=== PATIENT | male | born 1950 | race Two or more races ===

== ENCOUNTER → 2024-07-29 | Outpatient (CLI) | payer MEDICAID, SELFPAY ==
--- NOTE | 2024-07-29 10:30 | XR_ITS ---
Examination: MRI brain without intravenous contrast. Date and time of exam: July 29, 2024 1049 hours INDICATIONS: Increasing memory loss confusion 3 months, diagnosis Parkinson's disease 2021 Technique: Multiple axial and sagittal images of the brain obtained. Siemens high-resolution 1.5 Maye short bore scanners utilized. Sagittal sections, T1-weighted, TR 500, TE 14, are performed. Axial sections proton-density and T2-weighted have been obtained. Inversion recovery axial images, TR 9, 260, TE 111, TI 2500. Diffusion weighted images, axial sections, TR 4800, TE 128, B value 1000 Axial sections, ADC map, TR 4800, TE 128 Findings: Enlargement of the sella turcica is not present. The optic chiasm and infundibular are not remarkable. Prepontine and interpeduncular cisterns are not enlarged. There is no localized enlargement of the medulla or barbara. Fourth ventricle and cerebellar tonsils appear normal in position. No subacute area of hemorrhage density is seen. Mass in the cerebellopontine angle region is not evident. Globes symmetrical. Orbital musculature including medial lateral rectus muscles do not exhibit abnormality. Diffusion-weighted images demonstrate no focus of restricted diffusion. Increased white matter signal mild Mass effect upon the ventricular system is not identified. Impression: Negative for acute hemorrhage mass effect or midline shift No acute infarct Mild chronic microvascular white matter change Chronic ethmoid sinusitis
== END | disposition home or self-care (01) ==
LOC: SMRI 09:44
PROVIDERS: PCP Nurse Practitioner Family; Referring Provider Nurse Practitioner Family; Visit Provider Nurse Practitioner Family
DX: J32.2 Chronic ethmoidal sinusitis (principal); R90.82 White matter disease, unspecified
CPT/HCPCS: 70551

== ENCOUNTER 2024-08-11 10:49 | Inpatient (IN) | payer MEDICAID, SELFPAY ==
[2024-08-11] VITALS (8 sets, daily range): BP systolic 151–181; BP diastolic 70–94; PULSE 72–839; RESP 17–96; TEMP 36.4–36.9; O2SAT 93–97
--- NOTE | 2024-08-11 10:53 | EKG_ITS ---
[facility] Test Date: 2024-08-11 Pat Name: MARCOS CHINCHILLA Department: Room: - Gender: Male [place]: : 1950 Requested By: Ryan Peguero Order Number: [id number] Reading MD: Ryan Peguero Measurements Intervals [place] Rate: 85 P: 31 [place]: 155 QRS: -25 QRSD: 93 T: 28 QT: 355 QTc: 423 Interpretive Statements SINUS RHYTHM BORDERLINE LEFT AXIS DEVIATION [QRS AXIS < -20] LOW QRS VOLTAGE IN PRECORDIAL LEADS [QRS DEFLECTION < 1.0 mV IN CHEST LEADS] Compared to ECG 04/03/2024 13:34:29 No significant changes /store/S0/[id number]/[id number].pdf
--- NOTE | 2024-08-11 10:54 | EDNOTE_ITS ---
Neuro Symptoms Deficit-RME/HPI General Chief Complaint: Weakness Stated Complaint: STROKE Time Seen by Provider: 08/11/24 10:53 Arrival date/time: 08/11/24 10:49 RME / HPI RME / HPI Narrative: 74 year old male with history of Parkinson's disease, dementia presents to the ED BIBA from home for evaluation of left facial droop and weakness beginning this morning after waking up at 10:00 am. Per medics, family reports patient was unable to get out of bed which is new for him. Stated patient went to bed at 7pm last night and was at his usual state of health. Prehospital B/P 168/93, BS 188. No falls injury or trauma reported. Patient denies any recent illness, fevers, chills, sweats, chest pain, abdominal pain, n/v/d, or urinary symptoms. Related Data Home Medications ?Medication ?Instructions ?Recorded ?Confirmed furosemide 40 mg tablet 40 mg PO QDAY 12/09/21 12/09/21 trazodone 50 mg tablet 50 mg PO QPM 12/09/21 12/09/21 Previous Rx's ?Medication ?Instructions ?Recorded carbidopa 25 mg-levodopa 100 mg 1 tab PO TID #90 tabs 03/08/21 tablet meclizine 25 mg tablet 25 mg PO QDAY PRN dizziness #14 06/25/22 tabs hydrocodone 5 mg-acetaminophen 325 1 tab PO BID PRN pain #10 tabs 01/29/23 mg tablet naproxen 375 mg tablet 375 mg PO BID PRN pain #20 tabs 01/29/23 doxycycline hyclate 100 mg capsule 100 mg PO BID #14 caps 12/29/23 Allergies Allergy/AdvReac Type Severity Reaction Status Date / Time No Known Allergies Allergy Verified 02/25/24 15:59 Review of Systems Review of Systems Narrative Review of Systems: Constitutional: DENIES; Fevers Eyes: DENIES; Loss of vision Head/Ear/Nose: DENIES; Loss of hearing Throat: DENIES; Dysphagia Cardiovascular: DENIES; Chest pain, dyspnea or syncope Respiratory: DENIES; Shortness of breath Gastrointestinal: DENIES; Rectal bleeding or melena. Genitourinary: DENIES; Dysuria (painful or difficult urination) Musculoskeletal: DENIES; Arthralgia (pain in a joint),; Skin: DENIES; Rash Neurological: SEE HPI +generalized weakness, left facial droop Psychiatric: DENIES; recent major life stressor, emotional problem, illicit drug use or abuse Endocrinology: DENIES; Weight change Hematologic/Lymphatic: DENIES; Abnormal bruising Allergic/Immunologic: DENIES; Urticaria (hives) Past Medical History Past Medical History NEUROLOGIC: Positive Neurological Disorders, Transient Ischemic Attacks (TIA), Dementia and Parkinson's Disease Surgical History OTHER SURGICAL HX: RIGHT ARM SUGERY Social History SMOKING STATUS: Never smoker SUBSTANCE USE: does not use ED Exam Narrative Physical exam: Physical Exam: General: The vital signs were reviewed. Patient brought in by EMS for a stroke alert has acute onset of unable to walk and slurred speech was found this way 10 this morning when he woke up. Otherwise patient has a facial droop and appears healthy with a patent airway, no respiratory distress and has no apparent circulatory problems. Head & Scalp: Normocephalic, atraumatic. Face: Appears normal and is without lesions, deformity. Ears: Left external pinna appears normal. Right external pinna appears normal. Eyes: The sclera is anicteric. No obvious photophobia. The Left and Right Orbit/Lid/Conjunctiva appears normal without swelling, discoloration or injection. Nose: The nose is without deformity, discharge or tenderness; Throat: Appears normal. The mucous membranes are pink and moist without exudates, redness or mass seen. The tongue appears normal. Neck: The neck is supple and no apparent mass or adenopathy. Chest: The chest wall is normal in size and symmetry and has no chest wall tenderness or crepitus. The patient displays normal ventilator effort without retractions, accessory muscle use and has adequate air movement bilaterally with no wheezes and no rales. Cardiovascular: Regular rate and rhythm; No murmurs, rubs, or gallops; Gastrointestinal: The abdomen appears normal. No obvious hernias or mass. The abdomen is soft and benign, non-distended, with no pain, no guarding and no rebound tenderness. Bowel sounds are present and normal sounding. No CVA tenderness. Genitourinary: Back/Spine: No complaints of pain normal [place] Extremities/Musculoskeletal/lymphatic: The bilateral upper and lower extremities are warm. There is no evidence of arterial insufficiency. There is no evidence of venous insufficiency/edema. The patient spontaneously moves bilateral upper and lower extremities with no pain and no limitation of movement. There is no apparent, injury or trauma. Skin: The skin is warm, dry and intact. No rashes. No petechia. No purpura. No abnormal bruising. The color is appropriate with no cyanosis. Mental status/Psychiatric: Mental status is appropriate for age. The patient has no apparent delusions, visual hallucinations, no apparent audible hallucinations. The patient has no apparent suicidal thoughts/ideation and no apparent homicidal thoughts/ideation. Neurological: The patient is awake, alert, interactive, appears to follow directions understands questions his speech is quite slurred hard to understand. Cranial nerves are grossly intact his pupils have range of motion but there is somewhat restricted he also has a history of Parkinson's. UNREMARKABLE opens his mouth tongue is midline. He is got good light adjuster strength bilaterally in his hands. He moves them on command. Right leg has motor probably 4/5 and left leg is probably weaker 3/5. Gait and station were not tested due to is too weak to stand at this time. Course Quality Measures Suspected type of Stroke: Non Acute Last known well (date): 08/10/24 Last known well (time): 19:00 Tenecteplase given: Reason(s) TPA not given: Outside the time window not given stroke Orders Category Date Time Status Bedside Blood Glucose NOW Care 08/11/24 10:53 Active Personnel Clerk NOW Care 08/11/24 10:53 Active Continuous Pulse Oximetry NOW Care 08/11/24 10:53 Completed EKG (ED ONLY) *Do not use* NOW Care 08/11/24 10:53 Completed In and Out Catheter NEEDED Care 08/11/24 10:53 Active Insert IV NOW Care 08/11/24 10:53 Active MRI Screening NOW Care 08/11/24 15:56 Active NIH Stroke Scale now Care 08/11/24 10:53 Active NPO NOW Care 08/11/24 10:53 Active Nurse Swallow Screen x1 Care 08/11/24 10:53 Active Consult to Neurology / Tele-Neurology Routine Cons 08/11/24 10:[address] angio stroke protocol Stat Exams 08/11/24 10:[address] stroke protocol Stat Exams 08/11/24 10:53 Completed EKG (ED Only) Stat Exams 08/11/24 10:53 Draft MR head/brain wo con Stat Exams 08/11/24 Ordered XR chest 1V portable Stat Exams 08/11/24 16:09 Completed CBC Stat Lab 08/11/24 11:43 Completed Comprehensive Metabolic Panel Stat Lab 08/11/24 11:43 Completed Drug Screen,Urine Stat Lab 08/11/24 12:28 Completed HCG Titer if Positive Stat Lab 08/11/24 11:43 Completed Magnesium Stat Lab 08/11/24 11:43 Completed Partial Thromboplastin Time Stat Lab 08/11/24 11:43 Completed Prothrombin Time with INR Stat Lab 08/11/24 11:43 Completed Troponin I Stat Lab 08/11/24 11:43 Completed Urinalysis Stat Lab 08/11/24 12:28 Completed Urine Culture Stat Lab 08/11/24 12:28 Received Aspirin Med 08/11/24 15:54 Discontinued 325 mg PO X1 ONE Clopidogrel [Plavix] Med 08/11/24 15:54 Discontinued 300 mg PO X1 ONE Ondansetron Inj [Zofran Inj] Med 08/11/24 10:53 Active 4 mg IV Q4HR PRN Oxygen Delivery NOW RT 08/11/24 10:53 Active Vital Signs Vital signs: Vital Signs Temperature 98.4 F 08/11/24 11:24 Pulse Rate 87 08/11/24 11:24 Respiratory Rate 20 08/11/24 11:24 Blood Pressure 157/85 H 08/11/24 11:24 Pulse Oximetry (%) 97 08/11/24 11:24 Oxygen Delivery Method Room Air 08/11/24 11:24 Pulse ox is 97% on room air which is adequate. Neuro Symptoms / Deficit MDM Narrative MDM Narrative:: Patient is a 71-year-old comes in with acute onset of neurological symptoms at 10 AM when he woke up last seen normal was 7 PM last night. An acute stroke alert was called. Patient presented the ambulance bay with left facial droop left leg weakness and states his left arm also felt weak but was able to move it with 4-5 strength. Patient had a CT of the head with with no acute no bleed no fracture CTA was done which reveals no occlusive process. Patient medical workup included a test which was negative urine drug screen which was negative. Urine was concentrated 1038 comprehensive metabolic panel was essentially negative PT/INR within normal limits. Blood count was 5.4 and hemoglobin 12.9. Patient's blood pressure on initial evaluation were 1 40-1 70 systolic range . Teleneurologist called back and felt the patient was a candidate for aspirin and Plavix which was given at 325 and 300 mg. Also requested MRI. Dr. Mckay was contacted at 1555 hrs. will be consulting spoke with the hospitalist Dr. Resendiz and he will be admitted for the hospitalist team. Patient data External records reviewed:: [facility] previous records (I reviewed ED visit on 04/03/2024) and EMS form Clinical information provided by:: patient and EMS (Provided prehospital course) Social determinants that could affect healthcare access:: none Patient has the following chronic illnesses:: Parkinson's Disease, dementia How is presenting disease/condition affected by chronic disease/condition?: exacerbated by Evaluation data The following diagnostics were reviewed and interpreted by me:: lab results, radiology exam(s) and EKG tracing(s) (Sinus rhythm, rate 85, no STEMI. ) Lab and/or radiology exams considered but not ordered:: None Interpretation Summary: Ordering Physician: Ryan Peguero MD Date of Service: 08/11/24 Procedure(s): CT stroke protocol Accession Number(s): [id number] cc: Ryan Peguero MD; Alex Mobley MD~ Examination: CT brain head without contrast. 2-D sagittal coronal reconstructions Date and time of exam:August 11, 2024 1055 hours INDICATIONS: Stroke alert, onset left-sided facial droop today CTDI: vol (mGy):56.7 DLP: (mGycm):1227 Technique: Multiple CT axial sections of the brain have been obtained, 5 mm slice thickness. Contrast has not been administered. 2-D sagittal, coronal reconstructions have been obtained Low dose protocols were performed. One or more of the following dose reduction techniques were used; automated exposure control, adjustment of the mA and/or KV according to patient size, use of iterative reconstruction technique. Findings: No significant ventricular enlargement. Intra-axial or extra-axial hemorrhage density is not seen. No mass effect or midline shift Basal cisterns are not remarkable. Fourth ventricle is midline. Cranial vault intact. Impression: Negative for acute hemorrhage, mass effect or midline shift Dictated By: Alex Mobley MD Signed By: <Electronically signed by Alex Mobley MD in OV> 08/11/24 1103 ======= Ordering Physician: Ryan Peguero MD Date of Service: 08/11/24 Procedure(s): CT angio stroke protocol Accession Number(s): [id number] cc: Ryan Peguero MD; Alex Mobley MD~ Examination: CTA carotids with intravenous contrast CTA brain, head with intravenous contrast. 2-D sagittal, coronal reconstructions. 3-D reconstructions. Exam date and time: August 11, 2024 1102 hours INDICATIONS: Stroke alert, onset left-sided facial droop beginning this morning CTDI: vol (mGy) 56.9 DLP: (mGycm) 476 Technique: Multiple CTA axial brain, head carotid images post intravenous contrast injection 100 cc, [id number]. 2-D sagittal, coronal reconstructions. 3-D reconstructions, 3-D post processing including vascular maximum intensity projection images. Low dose protocols were performed. One or more of the following dose reduction techniques were used; automated exposure control, adjustment of the mA and/or KV according to patient size, use of iterative reconstruction technique. Findings: No significant common carotid carotid bifurcation or internal carotid artery stenoses Dominant left vertebral artery with no critical stenoses No cerebral large vessel arterial occlusions thrombus dissection or cerebral aneurysm IMPRESSION: No significant neck arterial stenoses No cerebral large vessel arterial occlusions or thrombus Dictated By: Alex Mobley MD Signed By: <Electronically signed by Alex Mobley MD in OV> 08/11/24 1144 Medications / Prescriptions Medications or Prescriptions considered but not ordered:: None Medication administrations:: Medication Administration History Ondansetron HCl (Ondansetron Inj 2 Mg/Ml Inj 2 Ml) 4 mg IV Q4HR PRN PRN Reason: NAUSEA OR VOMITING Stop: 09/10/24 10:52 Discontinued Medications Aspirin (Aspirin 325 Mg Tablet) 325 mg PO X1 ONE Stop: 08/11/24 15:55 Clopidogrel Bisulfate (Clopidogrel Bisulfate 75 Mg Tablet) 300 mg PO X1 ONE Stop: 08/11/24 15:55 See above Consultations Consultation(s) initiated? (list below): Yes Consultation #1 (Physician, Specialty, Details): I spoke with teleneurologist Dr. Martinez as noted above. Time: 11:11 Consultation #2 (Physician, Specialty, Details): I spoke with resident Dr. Guzman working with Dr. Santana. Discussed patients PMHx, HPI, ED course, exam findings, labs, and radiology results. The hospitalist agree to accept the patient for admission. Diagnosis Neuro Differential Diagnosis: subarachnoid hemorrhage, cerebrovascular accident and transient cerebral ischemia Most likely diagnosis given after review of the tests above:: Acute stroke due to ischemia Acute left hemiparesis Slurred speech Parkinsonism Bradykinesia Admission Indicated Admission indicated?: indicated Admission Request Was there a request for admission?: Yes Admission Attestation Admission request attestation: Discussed case with [] from Hospitalist service regarding admission. Discussed patients ED course, exam findings, labs, and radiology results. The Hospitalist [agrees,declines] to accept the patient for admission. Disposition Plan Disposition Plan: Admit Critical Care Time Critical Care Time Critical Care Time: Yes Total Critical Care Time (min.): 45 Attestation: The high probability of sudden, clinically significant deterioration in the patient's condition required the highest level of my preparedness to intervene urgently. The services I provided to this patient were to treat and/or prevent clinically significant deterioration. Services included the following: chart data review, reviewing nursing notes and/or old charts, documentation time, financial consultant collaboration regarding findings and treatment options, medication orders and management, direct patient care, vital sign assessments and ordering, interpreting and reviewing diagnostic studies and lab tests. Aggregate critical care time includes only time during which I was engaged in work directly related to the patient's care, as described above, whether at bedside or elsewhere in the Emergency Department. It did not include time spent performing other reported procedures or the services of residents, students, nurses or physician assistants. Discharge Plan Plan Patient Disposition: Admit Acute Care w/in Hospital Disposition Comment: Hospitalist admit neurology consult Prescriptions/Referrals Prescriptions/Med Rec: No Action carbidopa-levodopa 25-100 mg Tablet 1 tab PO TID Qty: 90 0RF furosemide 40 mg tablet 40 mg PO QDAY trazodone 50 mg tablet 50 mg PO QPM Patient Comments: TAKE 1 TABLET BY MOUTH EVERY DAY AT BEDTIME NEEDED FOR 30 DAYS meclizine 25 mg tablet 25 mg PO QDAY PRN (Reason: dizziness) Qty: 14 0RF doxycycline hyclate 100 mg capsule 100 mg PO BID Qty: 14 0RF naproxen 375 mg tablet 375 mg PO BID PRN (Reason: pain) Qty: 20 0RF hydrocodone-acetaminophen 5-325 mg tablet 1 tab PO BID MDD 2 PRN (Reason: pain) Qty: 10 0RF Referrals: No Primary/Family,Physician [Primary Care Provider] - In 1 week Problem List Clinical Impression: Acute stroke due to ischemia, Acute left hemiparesis, Slurred speech, Parkinsonism, Bradykinesia Patient/Caregiver Discharge Instructions Print Language: Tamazight Stand Alone Forms: Lianet Award Info., Patient Portal Info Letter
--- NOTE | 2024-08-11 11:15 | PD.TNEURO ---
Tele Neuro Consultation Consultation Date 08/11/24 Consultation Narrative [facility] Tele[facility]rology Consult [facility] Patient Name:???Eitan Tomlinson Date of :???1950 Identification Number:??? Date of Service:???08/11/2024 10:46:30 Diagnosis:?I63.30 - Cerebrovascular accident (CVA) due to thrombosis of cerebral artery (HCCC) Impression: ?74M with PMHx Parkinson's disease, TIA, presents for LLE weakness. Patient states he was ok when he went to bed last night at 7pm. This morning when he woke up, he could not get out of bed at 10am. ?He could not walk. That leg has been weak in the past, but not this weak. His left arm also feels weak. Normally he can walk unassisted. On exam no drift LUE and can initially lift as high as the RUE, however he has difficulty completing FTN, but is not ataxic, suspect difficult with movmement initiation 2/2 Parkinson's. LLE drift and L facial droop are present. DDX includes acute ischemic stroke vs recrudescence of prior deficits and exacerbated by underlying Parkinson's, suspect he is undermedicated with respect to his carbidopa levodopa. Our recommendations are outlined below. Recommendations: ? Stroke/Telemetry Floor ? Neuro Checks ? Bedside Swallow Eval ? DVT Prophylaxis ? IV Fluids, Normal Saline ? Head of Bed 30 Degrees ? Euglycemia and Avoid Hyperthermia (PRN Acetaminophen) ? Antihypertensives PRN if Blood pressure is greater than 220/120 or there is a concern for End organ damage/contraindications for permissive HTN. If blood pressure is greater than 220/120 give labetalol PO or IV or Vasotec IV with a goal of 15% reduction in BP during the first 24 hours. ?If passes bedside swallow; ASA 325 and Plavix 300mg PO; if does not pass, then ASA 300mg NM; ?MR brain w/o; stroke workup if new stroke on MR brain ?Inpatient Neuro if available to titrate Parkinson's meds; close outpatient Neuro follow-up Sign Out: ? Discussed with Emergency Department Provider Advanced Imaging:Advanced imaging has been ordered. Results pending. Metrics: Last Known Well: 08/10/2024 19:00:00 Dispatch Time: 08/11/2024 10:46:30 Arrival Time: 08/11/2024 10:49:00 Initial Response Time: 08/11/2024 10:50:10Symptoms: LLE weakness. Initial patient interaction: 08/11/2024 10:53:04 NIHSS Assessment Completed: 08/11/2024 11:04:00Patient is not a candidate for Thrombolytic. Thrombolytic Medical Decision: 08/11/2024 11:04:30Patient was not deemed candidate for Thrombolytic because of following reasons: LKW outside 4.[address] head showed no acute hemorrhage or acute core infarct. Primary Provider Notified of Diagnostic Impression and Management Plan on: 08/11/2024 11:09:39 History of Present Illness:Patient is a 74 year old Male. Patient was brought by EMS for symptoms of LLE weakness. 74M with PMHx Parkinson's disease, TIA, presents for LLE weakness. Patient states he was ok when he went to bed last night at 7pm. This morning when he woke up, he could not get out of bed at 10am. He could not walk. That leg has been weak in the past, but not this weak. His left arm also feels weak. ? Medications: No Anticoagulant use? No Antiplatelet use Reviewed EMR for current medications Allergies:? Reviewed Social History: Smoking: No Family History: There is no family history of premature cerebrovascular disease pertinent to this consultation ROS : 14 Points Review of Systems was performed and was negative except mentioned in HPI. Past Surgical History: There Is No Surgical History Contributory To Today?s Visit ? Examination: BP(168/93),?Pulse(100),?Blood Glucose(188) 1A: Level of Consciousness - Alert; keenly responsive?+ 0 1B: Ask Month and Age - 1 Question Right?+ 1 1C: Blink Eyes & Squeeze Hands - Performs Both Tasks?+ 0 2: Test Horizontal Extraocular Movements - Normal?+ 0 3: Test Visual Duncan - No Visual Loss?+ 0 4: Test Facial Palsy (Use Grimace if Obtunded) - Partial paralysis (lower face)?+ 2 5A: Test Left Arm Motor Drift - No Drift for 10 Seconds?+ 0 5B: Test Right Arm Motor Drift - No Drift for 10 Seconds?+ 0 6A: Test Left Leg Motor Drift - Drift, but doesn't hit bed?+ 1 6B: Test Right Leg Motor Drift - No Drift for 5 Seconds?+ 0 7: Test Limb Ataxia (FNF/Heel-Warren) - No Ataxia?+ 0 8: Test Sensation - Mild-Moderate Loss: Can Sense Being Touched?+ 1 9: Test Language/Aphasia - Normal; No aphasia?+ 0 10: Test Dysarthria - Normal?+ 0 11: Test Extinction/Inattention - No abnormality?+ 0 NIHSS Score:?5 NIHSS Free Text :?decreased sensation L face; L facial droop Pre-Morbid Modified [place] Scale:2 Points = Slight disability; unable to carry out all previous activities, but able to look after own affairs without assistance Spoke with :?ED physician This consult was conducted in real time using interactive audio and video technology. Patient was informed of the technology being used for this visit and agreed to proceed. Patient located in hospital and provider located at home/office setting. Patient is being evaluated for possible acute neurologic impairment and high probability of imminent or life-threatening deterioration. I spent total of 35 minutes providing care to this patient, including time for face to face visit via telemedicine, review of medical records, imaging studies and discussion of findings with providers, the patient and/or family. Dr Benita Martinez [facility] For Inpatient follow-up with [facility] physician please call [facility] at . As we are not an outpatient service for any post hospital discharge needs please contact the hospital for assistance. If you have any questions for the [facility] physicians or need to reconsult for clinical or diagnostic changes please contact us via [facility] at .
[2024-08-11 11:50] LABS: Basophils % (Auto) 0 % (0-2.5); Eosinophils % (Auto) 1 % (0-10); Hematocrit 36.8 % (41.0-53.0); Hemoglobin 12.9 g/dL (13.5-16.0); Immature Granulocytes % (Auto) 0 % (0-0); Immature Granulocytes Auto 0.02 Thou/mm3 (0.00-0.00); Lymphocytes # (Auto) 1.5 Thou/mm3 (1.0-4.8); Lymphocytes % (Auto) 27 % (10-50); Mean Corpuscular HGB Conc 35.1 g/dl (31.0-37.0); Mean Corpuscular Hemoglobin 30.8 pg (25.0-35.0); Mean Corpuscular Volume 88 fL (80-100); Monocytes # (Auto) 0.6 Thou/mm3 (0.0-0.8); Monocytes % (Auto) 10 % (0-12); Neutrophils # (Auto) 3.3 Thou/mm3 (1.8-7.7); Neutrophils % (Auto) 61 % (37-80); Nucleated Red Blood Cell % 0 /100 WBC (0); Platelet Count 214 Thou/mm3 (140-440); RDW Standard Deviation 41.1 fL (35.1-43.9); Red Blood Count 4.19 Miln/mm3 (4.50-5.90); White Blood Count 5.4 Thou/mm3 (3.8-10.6)
[2024-08-11 12:03] LABS: Partial Thromboplastin Time 20.6 Seconds (22.0-36.0); Prothrombin Time 10.8 Seconds (9.0-12.2)
[2024-08-11 12:10] LABS: HCG Titer if Positive Negative
[2024-08-11 12:11] LABS: Alanine Aminotransferase 25 U/L (10-49); Albumin, Serum 4.1 gm/dL (3.4-4.8); Albumin/Globulin Ratio 1.4 (1.2-2.2); Alkaline Phosphatase 77 U/L (46-116); Anion Gap 10 (7-16); Aspartate Amino Transferase 20 U/L (0-34); BUN/Creatinine Ratio 14 Ratio (12-20); Blood Urea Nitrogen 13 mg/dL (9-23); Calcium 9.5 mg/dL (8.3-10.6); Calcium (Corrected) 9.5 mg/dL (8.5-10.1); Carbon Dioxide 23.9 mMol/L (20.0-31.0); Chloride 105 mMol/L (98-107); Creatinine (Component) 0.9 mg/dL (0.6-1.3); Glucose 99 mg/dL (74-106); Magnesium 2.2 mg/dL (1.6-2.6); Osmolality,Calculated 277 (275-295); Sodium 139 mMol/L (136-145); Total Protein 7.1 gm/dL (5.7-8.2); Troponin I < 0.002 ng/mL (0.0-0.045); eGFR > 60 See Note
[2024-08-11 12:49] LABS: Collection Type, Urine Catheter; Squamous Epithelial Cell,Urine 0 /hpf (0-5)
[2024-08-11 12:53] LABS: Bacteria,Urine 1+; Bilirubin,Urine Negative (Negative); Blood,Urine Negative (Negative); Clarity,Urine Clear (Clear/Hazy); Color,Urine Yellow (Lt Yel-Yel); Glucose, Urine Negative (Negative); Ketones,Urine Negative (Negative); Leukocyte Esterase,Urine Negative (Negative); Nitrite,Urine Negative (Negative); PH,Urine 6.5 (5.0-7.0); Protein,Urine Negative (Neg - Trace); RBC,Urine 4 /hpf (0-3); Specific Gravity,Urine 1.038 (1.001-1.035); WBC,Urine 1 /hpf (0-5)
[2024-08-11 12:54] LABS: Amphetamine/Methamp Scrn,U Negative (Negative); Barbiturate Screen,Urine Negative (Negative)
[2024-08-11 12:55] LABS: Benzodiazepines Screen,Urine Negative (Negative); Benzoylecgonine Screen, Ur Negative (Negative); Opiate Screen,Urine Negative (Negative); THC Screen,Urine Negative (Negative)
[2024-08-11 14:38] LABS: Fentanyl Screen,Urine Negative (Negative)
--- NOTE | 2024-08-11 16:09 | XR_ITS ---
Examination: AP chest single view TECHNIQUE: AP portable upright chest single view Exam date and time: August 11, 2024 1628 hours Comparison February 25, 2024 INDICATIONS: Stroke alert today, onset left-sided facial droop FINDINGS: Minor subsegmental atelectasis left base No aspiration pneumonia Normal heart size Reduced inspiratory effort IMPRESSION: No aspiration pneumonia
--- NOTE | 2024-08-11 16:38 | PC.CC ---
Patient is a 74 year-old BIBA from home for stroke. AMARAWEusebia made [id number]-[id number] contact with patient. ASW introduced self, role, and reason for visit. Patient appeared alert and oriented to self, location, and situation. At bedside was patient's spouse, Marita Pritchett who patient provided consent to remain in the room during assessment. Patient confirmed information on demographic and lives at home with his his spouse. Prior to patient being admitted patient used a walker to ambulate. The patient is complete assist and patient's helps with all ADLs. The patient has parkinson and is not able to complete ADLs. Patient receives primary care with Caren Ruiz and uses [facility] for prescription medications. Patient's Next of Kin is spouse Anne. Upon discharge the patient would like to return home; however is open to a SNF if it is needed for rehab services. administrative services manager to follow-up for any discharge needs.
--- NOTE | 2024-08-11 16:41 | PC.CC ---
Patient is a 74 year-old BIBA from home for stroke. Eusebia CALDWELL made [id number] contact with patient. ASW introduced self, role, and reason for visit. Patient appeared alert and oriented to self, location, and situation. At bedside was patient's spouse, Marita Pritchett who patient provided consent to remain in the room during assessment. Patient confirmed information on demographic and lives at home with his his spouse. Prior to patient being admitted patient used a walker to ambulate. The patient is complete assist and patient's helps with all ADLs. The patient has parkinson and is not able to complete ADLs. Patient receives primary care with Caren Ruiz and uses [facility] for prescription medications. Patient's Next of Kin is spouse Marita Beasleytrey . Upon discharge the patient would like to return home; however is open to a SNF if it is needed for rehab services. oil well services field supervisor to follow-up for any discharge needs.
--- NOTE | 2024-08-11 17:00 | ECHO_ITS ---
Transthoracic Echo Report Ht (in): 66 Wt (lb): 206 Exam Location: Portable Status: Emergency Toddler Guide: Rika Wooten Indications: Procedure Performed: BP: 132 / 73 HR: 63 Rhythm: Sinus Technical Quality: Technically difficult study MEASUREMENTS (Male / Female) Normal Values 2D ECHO LV Diastolic Diameter PLAX 4.3 cm 4.2 - 5.9 / 3.9 - 5.3 cm LV Systolic Diameter PLAX 2.9 cm IVS Diastolic Thickness 0.9 cm 0.6 - 1.0 / 0.6 - 0.9 cm LVPW Diastolic Thickness 1.0 cm 0.6 - 1.0 / 0.6 - 0.9 cm LV Relative Wall Thickness 0.4 LVOT Diameter 2.0 cm LA Volume Index 17.0 cm?/m? 16 - 28 cm?/m? Ascending Aorta Diameter 3.7 cm M-MODE Aortic Root Diameter MM 3.3 cm LA Systolic Diameter MM 3.8 cm LA Ao Ratio MM 1.2 AV Cusp Separation MM 1.8 cm DOPPLER AV Peak Velocity 122.0 cm/s AV Peak Gradient 6.0 mmHg AV Mean Gradient 2.0 mmHg AV Velocity Time Integral 23.9 cm LVOT Peak Velocity 118.0 cm/s LVOT Peak Gradient 5.6 mmHg LVOT Velocity Time Integral 24.7 cm LVOT Cardiac Index 2305.3 cm?/min?m? AV Area Cont Eq vti 3.2 cm? AV Area Cont Eq pk 3.0 cm? MV Peak Velocity 99.0 cm/s MV Peak Gradient 3.9 mmHg MV Mean Velocity 60.8 cm/s MV Mean Gradient 2.0 mmHg MV Area PHT 3.5 cm? Mitral E Point Velocity 66.9 cm/s Mitral A Point Velocity 88.8 cm/s Mitral E to A Ratio 0.8 LV E' Lateral Velocity 8.4 cm/s Mitral E to LV E' Lateral Ratio 8.0 LV E' Septal Velocity 6.5 cm/s Mitral E to LV E' Septal Ratio 10.2 FINDINGS Left Ventricle Normal left ventricular size, wall thickness, systolic function with no obvious regional wall motion abnormalities. The ejection fraction is visually estimated at 60-65%. Right Ventricle The right ventricle is normal in size and systolic function. Left Atrium The left atrium is normal by two-dimensional, color flow and Doppler imaging with no structural abnormalities, no thrombus formation present. Right Atrium The right atrium is normal by two-dimensional imaging, color flow and Doppler imaging with no struct ural abnormalities, no thrombus formation present. Atrial Septum The interatrial septum appears normal with no evidence of a shunt. Aorta The aorta is normal by two-dimensional, color flow and Doppler interrogation. Mitral Valve The mitral valve is normal by two-dimensional, color flow and Doppler interrogation. There is trace mitral valve regurgitation. Aortic Valve The aortic valve is trileaflet and normal by two-dimensional, color flow and Doppler interrogation. There is no significant aortic valve regurgitation. Tricuspid Valve The tricuspid valve is normal by two-dimensional, color flow and Doppler interrogation. There is no significant tricuspid valve regurgitation. Pulmonic Valve The pulmonic valve is not well visualized. There is no significant pulmonic valve regurgitation. Vessels The pulmonary artery appears normal. The inferior vena cava pulmonary and hepatic veins appear annabella l. Pericardium The pericardium is normal by two-dimensional imaging. There is no significant pericardial effusion. CONCLUSIONS Indication: Stroke Negative bubble study. TTE is suboptimal to rule out PFO or ASD. Consider TRAVIS if high clinical suspi cion Normal LV size and function. Stage I diastolic dysfunction. Estimated EF 60-65% Normal RV size and function. Trace MR. Raghav Barron (Electronically Signed) Final Date: 12 August 2024 18:49
--- NOTE | 2024-08-11 17:33 | ESHP_ITS ---
Documentation for date of: 08/11/24 [facility] History of Present Illness Chief complaint: weakness History of present illness: 74 y/o M with PMHx of Parkinsons disease, presented to the ED after developing left sided weakness. Per the , patient was feeling tired and weak on 08/10/2024 and was unable to walk, and went to sleep. When he woke up patient was having more weakness on the left side, as well as some slurred speech. also states patient had some hesitancy with urination, but denies burning sensation. Tele neurology was consulted found with NIHSS:5, no tPA was given as patient was out of 4.5 hour window. Denies fever, chills, shortness of breath, chest pain, abdominal pain. ED course: Vitals on arrival showed BP 157/85, HR 87, O2 sat 97% on room air. Labs unremarkable, troponins negative, UA shows +1 bacteria, Utox negative, EKG showed sinus rhythm. CXR showed no aspiration pneumonia. Head CT showed Negative for acute hemorrhage, mass effect or midline shift, Head/Neck CTA showed No significant neck arterial stenoses, No cerebral large vessel arterial occlusions or thrombus. PMHx: Parkinsons SxHx: hand surgery Social Hx:denies alcohol use, denies tobbaco use, denies illicit substances FHx: unknown Review of Systems Review of Systems ROS Unobtainable: unobtainable due to medical condition Exam Vital Signs Temp Pulse Resp BP Pulse Ox O2 Del Method 98.5 F 82 19 170/78 H 96 Room Air 08/11/24 15:50 08/11/24 15:50 08/11/24 15:50 08/11/24 15:50 08/11/24 15:50 08/11/24 15:50 Narrative Exam Physical Exam GENERAL: NAD. AAOx3, slurred and slow speech HEENT: Moist mucosa. Eyes open, symmetrical, & clear CARDIO: No chest pain on palpation. Heart RRR, no obvious murmurs PULM: No noted coughing/dyspnea. Lungs CTA B/L, no R/W/R GI: Abdomen soft, nondistended, no pain on palpation. BSx4 URO/ROUND CUTTER OPERATOR:: No further abnormalities noted. SKIN/MSK/EXT: No wounds/rashes/edema/amputations, no pain on palpation. Pedal pulses present B/L NEURO: AAOx3, left sided weakness in left lower and upper extremity. Results: Labs 08/12/24 04:10 08/12/24 04:10 Labs: Short CBC 08/11/24 Range/Units 11:43 WBC 5.4 (3.8-10.6) Thou/mm3 Hgb 12.9 L (13.5-16.0) g/dL Hct 36.8 L (41.0-53.0) % Plt Count 214 (140-440) Thou/mm3 BMP 08/11/24 11:43 Sodium 139 Potassium 4.0 Chloride 105 Carbon Dioxide 23.9 BUN 13 Creatinine 0.9 Glucose 99 Calcium 9.5 Cardiac Enzymes 08/11/24 Range/Units 11:43 Troponin I < 0.002 (0.0-0.045) ng/mL Liver Function 08/11/24 Range/Units 11:43 Total Bilirubin 1.0 (0.3-1.2) mg/dL AST 20 (0-34) U/L ALT 25 (10-49) U/L Alkaline Phosphatase 77 (46-116) U/L Albumin 4.1 (3.4-4.8) gm/dL Urine 08/11/24 Range/Units 12:28 Urine Color Yellow (Lt Yel-Yel) Urine Clarity Clear (Clear/Hazy) Urine pH 6.5 (5.0-7.0) Ur Specific [place] 1.038 H (1.001-1.035) Urine Protein Negative (Neg - Trace) Urine Glucose (UA) Negative (Negative) Quality Measures Quality Measures stroke Suspected type of Stroke: Non Acute Last known well (date): 08/10/24 Last known well (time): 19:00 Tenecteplase given: Reason(s) Tenecteplase not given: Outside the time window not given Rehab services: PT evaluation ordered VTE Prophylaxis: pharmaceutical Antithrombotic by day 2:: not indicated (describe) Statin ordered: >75 y/o moderate or high intensity dose Anticoagulation ordered for A-fib or flutter (current or hx): not indicated Advance care planning discussed with:: patient and spouse Medications Home Medications and Allergies Home Medications ?Medication ?Instructions ?Recorded ?Confirmed ?Type carbidopa 25 mg-levodopa 100 mg 2 tab PO 4XD 08/11/24 08/11/24 History tablet istradefylline 40 mg tablet 40 mg PO QDAY 08/11/24 08/11/24 History (Maged) Allergies Allergy/AdvReac Type Severity Reaction Status Date / Time No Known Allergies Allergy Verified 02/25/24 15:59 Visit Medications Acetaminophen (Acetaminophen 325 Mg Tablet) 650 mg PO Q6H PRN PRN Reason: Fever >100.5 Stop: 09/10/24 16:59 Acetaminophen (Acetaminophen 325 Mg Tablet) 650 mg PO Q6H PRN PRN Reason: PAIN SCALE 1-3 (mild Stop: 09/10/24 16:59 Aspirin (Aspirin Ec 81 Mg Tabec) 81 mg PO QDAY [facility] Stop: 09/11/24 08:59 Atorvastatin Calcium (Atorvastatin Calcium 20 Mg Tablet) 80 mg PO HS [facility] Stop: 09/10/24 20:59 Carbidopa/Levodopa (Carbidopa/Levodopa 25/100 Mg Tablet) 1 tab PO TID [facility] Stop: 09/10/24 17:29 Clopidogrel Bisulfate (Clopidogrel Bisulfate 75 Mg Tablet) 75 mg PO QDAY [facility] Stop: 09/11/24 08:59 Enoxaparin Sodium (Enoxaparin Sod Inj 40 Mg/0.4 Ml Syringe) 40 mg SC QDAY [facility] Stop: 08/25/24 17:14 Labetalol HCl (Labetalol Inj 5 Mg/Ml Vial 20 Ml) 10 mg IVP Q6H PRN PRN Reason: SBP>220 Stop: 09/10/24 17:29 Ondansetron HCl (Ondansetron Inj 2 Mg/Ml Inj 2 Ml) 4 mg IV Q6H PRN; Protocol PRN Reason: NAUSEA OR VOMITING Stop: 09/10/24 16:59 Patient Own Medication (Patient's Own Med 1 Ea Ea) 300 ea PO Q48HR@2100 [facility] Stop: 09/10/24 20:59 Discontinued Medications Aspirin (Aspirin 325 Mg Tablet) 325 mg PO X1 ONE Stop: 08/11/24 15:55 Clopidogrel Bisulfate (Clopidogrel Bisulfate 75 Mg Tablet) 300 mg PO X1 ONE Stop: 08/11/24 15:55 Ondansetron HCl (Ondansetron Inj 2 Mg/Ml Inj 2 Ml) 4 mg IV Q4HR PRN PRN Reason: NAUSEA OR VOMITING Stop: 09/10/24 10:52 Assessment & Plan Plan 74 y/o M with PMHx of Parkinsons presented due to generalized weakness progressing to left sided weakness on upper and lower extremity as well as some slurred speech. NIHSS of 5 no tPA was given as patient was out of 4.5 hours window. Admitted for Stroke work up. #CVA rule out Patient started developing generalized weakness on 08/10/2024 but the next day developed slurred speech and left upper and lower extremity weakness Tele neuro consulted found with NIHSS of 5, no tPA was given as patient is out of window Head CT showed Negative for acute hemorrhage, mass effect or midline shift Head/Neck CTA showed No significant neck arterial stenoses, No cerebral large vessel arterial occlusions or thrombus - pending MRI - Echo bubble study pending - HOB>30 - Neurology consulted, appreciate recommendations - aspiration precautions - Aspirin 81mg - Plavix 75mg - speech evaluation pending - atorvastatin 80mg - PT eval pending - lipid panel, TSH, A1c pending #Hx of Parkinson disease - resumed Carbidopa levodopa as taken at home #?Latent Tb patient on medication prescription shows patient is taking rifampin and isoniazid Patient denies any weight loss, chills, hemoptysis -resumed isoniazid and rifampin as prescribed Case discussed with my senior Dr. Guzman PGY-[address] Max Beckford MD PGY-1 Disposition: Tele Fluids: None Feeding: NPO, until pass swallow screen Thrombo prophylaxis: Lovenox Gastric Ulcer prophylaxis: none CODE STATUS: Full code Senior resident attestation: Patient evaluated and examined at the bedside, plan of care discussed with rest of the team including my attending physician, except as noted. 74-year-old male, past medical history of parkinsonism, latent TB who presented to ER with generalized weakness, progressing left-sided weakness, patient was out of window for tPA, head CTA showed no LVO, no acute hemorrhage, patient was admitted for stroke workup, pending MRI echo bubble study and in-house neurology recommendations. Patient started on aspirin and Plavix and high intensity statin. Speech language eval and physical therapy eval pending. #Acute CVA #Parkinsonism?continue carbidopa/levodopa on home dose #Latent TB?on rifampin and isoniazid, continued home medications.? Megan PGY2 Attending Provider Attestation/Addendum I have examined the patient, reviewed labs and imaging findings, discussed the case with the resident(s), and reviewed entered orders. I agree with the plan of care as outlined in this note, with these additional summaries/recommendations: Patient presented with left lower extremity weakness, left arm weakness, and left facial droop. Stroke alert was called in the emergency department. Teleneuro was consulted and not a tPA candidate given timeframe. NIHSS score of 5 on admission. Patient was given aspirin loading dose 325 mg x 1 and Plavix loading dose 300 mg x 1. Start aspirin 81 mg p.o. daily and Plavix 75 mg p.o. daily. Pending MRI brain. Head CT was negative for acute hemorrhage and head CTA showed no LVO. Permissive hypertension, lipid panel, A1c, echocardiogram with bubble, PT consult, and swallow evaluation. Patient also has history of Parkinson's disease and possible symptoms are related to this. Resume home Parkinson's medications. Consult in-house neurology for titration of medications. Also appears patent has latent tuberculosis and resume home medications. Admit to telemetry. Repeat hematology and chemistry panel in AM. Dr. Santana
--- NOTE | 2024-08-11 17:40 | XR_ITS ---
Examination: Urinary bladder sonography complete Technique: Transabdominal sonographic images urinary bladder Exam date and time: 03/11/2024 1959 hrs. Indications: Urinary retention today Findings: No bladder mass or bladder calculi Bladder prevoid volume 95 cc postvoid volume 93 cc Prostate normal size no prostate nodules Impression: Negative examination
[2024-08-11 19:12] LABS: Glucose Estimated Average 111 mg/dL (80-131); Hemoglobin A1C 5.5 % Hgb (4.8-6.0)
[2024-08-11] MEDS: CLOPIDOGREL BISULFATE 75 MG TABLET 300 MG PO (19:34)
[2024-08-11] MEDS: Aspirin 325 MG TABLET PO (19:34)
[2024-08-11] MEDS: CARBIDOPA/LEVODOPA 25/100 MG TABLET 1 TAB PO (19:35)
[2024-08-11] MEDS: ENOXAPARIN SOD INJ 40 MG/0.4 ML SYRINGE SC (19:36)
--- NOTE | 2024-08-11 21:19 | PC.NURSE ---
Report called to Rand CHAVEZ. Pt taken to rm [id number] by myself pt on macaroni maker.
--- NOTE | 2024-08-11 23:57 | PC.NURSE ---
notified Dr. Mckay, resident, of patient failing swallow eval and unable to receive his lipitor. Patient has a speech eval tommorow.
[2024-08-12] VITALS: BP 168/84; PULSE 100; RESP 18; TEMP 36.1; O2SAT 97
--- NOTE | 2024-08-12 | XR_ITS ---
Examinations: MRI Brain without intravenous contrast. MRA brain without intravenous contrast. MRA carotids without intravenous contrast 3-D vascular reconstructions Date and time of exam: August 12, 2024 1130 hours Comparison March 07, 2021 INDICATIONS: Stroke alert August 11, 2024, onset focal neurologic deficit, left-sided body weakness slurred speech Technique: Multiple axial and sagittal images of the brain have been obtained MRA brain carotid images without contrast obtained, including 3-D postprocessing, vascular maximum intensity projection images Findings: S[place] is not enlarged. The optic chiasm and infundibular stalk are not remarkable. Prepontine and interpeduncular cisterns are not enlarged. No localized enlargement of the medulla or barbara. Fourth ventricle and cerebellar tonsils normal in position. Subacute hemorrhage is not seen. Fourth ventricle is midline. Mass in the cerebellopontine angle region is not evident. 7th and 8th nerve complexes exhibits symmetry. Globes are symmetrical with no retro-orbital mass. Increased white matter signal mild Diffusion-weighted images demonstrate no focus of restricted diffusion Mass-effect upon the ventricular system is not identified. MRA carotid images no significant carotid stenoses. MRA brain images no cerebral large vessel occlusions Impression: Negative for acute hemorrhage mass effect or midline shift No acute infarct Mild chronic microvascular white matter change No cerebral large vessel arterial occlusions
[2024-08-12 04:00] VITALS: BP 132/73; PULSE 63; RESP 20; TEMP 36.2; O2SAT 97
[2024-08-12 06:04] LABS: Basophils % (Auto) 0 % (0-2.5); Eosinophils % (Auto) 1 % (0-10); Hemoglobin 12.5 g/dL (13.5-16.0); Immature Granulocytes % (Auto) 0 % (0-0); Immature Granulocytes Auto 0.02 Thou/mm3 (0.00-0.00); Lymphocytes # (Auto) 1.3 Thou/mm3 (1.0-4.8); Lymphocytes % (Auto) 22 % (10-50); Mean Corpuscular HGB Conc 34.7 g/dl (31.0-37.0); Mean Corpuscular Hemoglobin 30.9 pg (25.0-35.0); Mean Corpuscular Volume 89 fL (80-100); Monocytes # (Auto) 0.7 Thou/mm3 (0.0-0.8); Monocytes % (Auto) 11 % (0-12); Neutrophils # (Auto) 3.9 Thou/mm3 (1.8-7.7); Neutrophils % (Auto) 65 % (37-80); Nucleated Red Blood Cell % 0 /100 WBC (0); Platelet Count 223 Thou/mm3 (140-440); RDW Standard Deviation 41.4 fL (35.1-43.9); Red Blood Count 4.05 Miln/mm3 (4.50-5.90); White Blood Count 5.9 Thou/mm3 (3.8-10.6)
[2024-08-12 06:29] LABS: Alanine Aminotransferase 12 U/L (10-49); Albumin, Serum 4.3 gm/dL (3.4-4.8); Albumin/Globulin Ratio 1.6 (1.2-2.2); Alkaline Phosphatase 76 U/L (46-116); Anion Gap 7 (7-16); Aspartate Amino Transferase 24 U/L (0-34); BUN/Creatinine Ratio 16 Ratio (12-20); Bilirubin,Total 1.5 mg/dL (0.3-1.2); Blood Urea Nitrogen 16 mg/dL (9-23); Calcium 9.4 mg/dL (8.3-10.6); Calcium (Corrected) 9.4 mg/dL (8.5-10.1); Carbon Dioxide 27.2 mMol/L (20.0-31.0); Cardiac Risk Estimate 2.4 RATIO (4.0-6.7); Chloride 104 mMol/L (98-107); Cholesterol 126 mg/dL (132-200); Globulin 2.7 gm/dL (2.3-3.5); Glucose 88 mg/dL (74-106); HDL Cholesterol 53 mg/dL (40-60); LDL Cholesterol,Calculated 60 mg/dL (0-130); Osmolality,Calculated 275 (275-295); Phosphorous 3.5 mg/dL (2.4-5.1); Potassium 3.7 mMol/L (3.4-5.1); Sodium 138 mMol/L (136-145); Thyroid Stimulating Hormone 3.51 uIU/mL (0.55-4.78); Triglycerides 65 mg/dL (30-150); eGFR > 60 See Note
[2024-08-12 08:00] VITALS: BP 149/77; PULSE 62; PULSE 67; RESP 15; TEMP 36.1; O2SAT 93
--- NOTE | 2024-08-12 09:25 | PCS.ST ---
Swallow Evaluation completed. See report for details. Recommend Dysphagia 2/Reg liquids. ST will follow
[2024-08-12] MEDS: ASPIRIN EC 81 MG TABEC PO (09:28)
[2024-08-12] MEDS: CLOPIDOGREL BISULFATE 75 MG TABLET PO (09:28)
[2024-08-12] MEDS: ENOXAPARIN SOD INJ 40 MG/0.4 ML SYRINGE SC (09:29)
--- NOTE | 2024-08-12 11:04 | PC.SS ---
SS met with patient regarding his d/c plan. Pt is alert/oriented. Pt was admitted for Stroke W/U. Pt confirmed demographic and contact information is correct on facesheet. Pt resides with . Pt ambulates independently without assistance. Pt has 4 wheel with seat, rollator walke. Pt requires assistance with ADLs. helps care for pt at home. Patient?s pharmacy of choice is [facility]. Pt named his , Marita Muñoz medical decision maker if she is unable. SS provided verbal d/c options for home or SNF. Patient?s choice is to return home upon d/c. Pt does not have an advance directive, SS offered, and pt declined. Pt states not diabetic and is not on dialysis. D/C plan: Return home Next of Kin: Marita Tomlinson, , phone# [phone] or [phone] PCP: Dr. Caren Ruiz from [facility] Address: Correct on facesheet
--- NOTE | 2024-08-12 11:06 | PC.SS ---
Stroke assessment completed.
--- NOTE | 2024-08-12 11:25 | PC.SS ---
Follow up note: Neuro recommendations pending. ECHO and PT pending. Pt will return home upon dc.
[2024-08-12 12:00] VITALS: BP 114/82; PULSE 60; PULSE 97; RESP 18; TEMP 36.4; O2SAT 99
[2024-08-12] MEDS: CARBIDOPA/LEVODOPA 25/100 MG TABLET 1 TAB PO ×2 (14:32→21:23)
--- NOTE | 2024-08-12 15:09 | PD.RESPRO ---
Documentation for date of: 08/12/24 Subjective Subjective Interval history: 74 yo maleadmitted yesterday for stroke workup, initial NIHSS score 5. No overnight events, this morning patient denies headache, diziness, however states feeling weak. MRI showed no acute infarct. Exam Vital Signs Temp Pulse Resp BP Pulse Ox O2 Del Method O2 Flow Rate 97.5 F 97 18 114/82 99 Nasal Cannula 2 08/12/24 12:00 08/12/24 12:00 08/12/24 12:00 08/12/24 12:00 08/12/24 12:00 08/12/24 12:00 08/12/24 12:00 Narrative Exam GENERAL: Awake, alert and oriented. No acute distress. HEENT: Normocephalic, atraumatic and nontender.? Left lower facial paralysis NECK: Supple without adenopathy. Trachea midline. Nontender, carotid pulse 2+ bilaterally without bruits, no JVD.? CHEST: Heart rate and rythm normal, no murmurs, gallops auscultated. S1 & 2 normal insensity. Nontender on palpation, no deformity and no crepitus. LUNGS: Lung sounds are clear.? No wheezing, rales or ronchi.? No intercostal subcostal retraction. Room air ABDOMEN: Soft,symmetric , nontender, no guarding or rebound tenderness.? Bowel sounds are normoactive in all 4 quadrants. EXTREMITIES: Nontender.? No pitting edema.? No cyanosis.? Patient is able to move all 4 extremities, weakness on upper extremities bilaterally SKIN: No rashes noted. NEURO:? Cranial nerves intact.? There is no focalization.? GCS is 15. Objective Labs 08/13/24 04:15 08/13/24 04:15 Labs: Laboratory Results - last 24 hr 08/11/24 08/12/24 11:43 04:10 WBC 5.9 RBC 4.05 L Hgb 12.5 L Hct 36.0 L MCV 89 MCH 30.9 MCHC 34.7 RDW Std Deviation 41.4 Plt Count 223 Neut % (Auto) 65 Lymph % (Auto) 22 Hood % (Auto) 11 Eos % (Auto) 1 Baso % (Auto) 0 Neut # (Auto) 3.9 Lymph # (Auto) 1.3 Hood # (Auto) 0.7 Eos # (Auto) 0.0 Baso # (Auto) 0.0 Immature Gran # (Auto) 0.02 H Absolute Nucleated RBC 0.00 Immature Gran % 0 Nucleated RBC % 0 Sodium 138 Potassium 3.7 Chloride 104 Carbon Dioxide 27.2 Anion Gap 7 BUN 16 Creatinine 1.0 Estim Creat Clear Calc Not Performed. eGFR > 60 BUN/Creatinine Ratio [address] Glu mg/dL 111 Hemoglobin A1c 5.5 Calculated Osmolality 275 Calcium 9.4 Corrected Calcium 9.4 Phosphorus 3.5 Magnesium 2.0 Total Bilirubin 1.5 H D AST 24 ALT 12 Alkaline Phosphatase 76 Total Protein 7.0 Albumin 4.3 Globulin 2.7 Albumin/Globulin Ratio 1.6 Triglycerides 65 Cholesterol 126 L LDL Cholesterol, Calc 60 HDL Cholesterol 53 Cholesterol/HDL Ratio 2.4 L TSH 3.51 Quality Measures Quality Measures stroke Suspected type of Stroke: Non Acute Last known well (date): 08/10/24 Last known well (time): 19:00 Tenecteplase given: Reason(s) Tenecteplase not given: Outside the time window not given Rehab services: PT evaluation ordered and Speech Language Pathology eval ordered VTE Prophylaxis: pharmaceutical Antithrombotic by day 2:: not indicated (describe) Statin ordered: >75 y/o moderate or high intensity dose Anticoagulation ordered for A-fib or flutter (current or hx): not indicated Advance care planning discussed with:: patient Assessment & Plan Assessment Current Active Medications: Generic Name Dose Route Start Last Admin Trade Name Freq PRN Reason Stop Dose Admin Acetaminophen 650 mg 08/11/24 17:00 Acetaminophen 325 Mg Tablet PO 09/10/24 16:59 Q6H PRN Fever >100.5 Acetaminophen 650 mg 08/11/24 17:00 Acetaminophen 325 Mg Tablet PO 09/10/24 16:59 Q6H PRN PAIN SCALE 1-3 (mild Aspirin 81 mg 08/12/24 09:00 08/12/24 09:28 Aspirin Ec 81 Mg Tabec PO 09/11/24 08:59 81 mg QDAY JUNE Administration Atorvastatin Calcium 80 mg 08/11/24 21:00 08/11/24 22:02 Atorvastatin Calcium 20 Mg Tablet PO 09/10/24 20:59 Not Given HS JUNE Carbidopa/Levodopa 1 tab 08/11/24 17:30 08/12/24 14:32 Carbidopa/Levodopa 25/100 Mg Tablet PO 09/10/24 17:29 1 tab TID JUNE Administration Rifapentin (Priftin) 0 ea 08/17/24 09:00 150mg Tablets PO 09/16/24 08:59 QWEEK JUNE Enoxaparin Sodium 40 mg 08/11/24 17:15 08/12/24 09:29 Enoxaparin Sod Inj 40 Mg/0.4 Ml Syringe SC 08/25/24 17:14 40 mg QDAY JUNE Administration Isoniazid 900 mg 08/18/24 09:00 Isoniazid 300 Mg Tablet PO 09/17/24 08:59 QWEEK JUNE Labetalol HCl 10 mg 08/11/24 17:18 Labetalol Inj 5 Mg/Ml Vial 20 Ml IVP 09/10/24 17:29 Q6H PRN SBP>220 Ondansetron HCl 4 mg 08/11/24 17:00 Ondansetron Inj 2 Mg/Ml Inj 2 Ml IV 09/10/24 16:59 Q6H PRN NAUSEA OR VOMITING Protocol Plan 74 y/o M with PMHx of Parkinsons presented due to generalized weakness progressing to left sided weakness on upper and lower extremity as well as some slurred speech. NIHSS of 5 no tPA was given as patient was out of 4.5 hours window. Admitted for Stroke work up #Acute CVA workup -Developed slurred speech and left upper and lower extremity weakness on 08/11, lower extremity weakness now resolved, only bilateral upper extremity weakness -Tele neuro consulted found with NIHSS of 5, no tPA was given as patient is out of window -Head CT showed Negative for acute hemorrhage, mass effect or midline shift -Head/Neck CTA showed No significant neck arterial stenoses, No cerebral large vessel arterial occlusions or thrombus -MRI no acute infarct -Continue Aspirin 81mg -Continue Plavix 75mg -Continue atorvastatin 80mg -Follow up echocardiogram Patient's care discussed with attending physician, Dr Woody Lopez MD PGY3 Attending Provider Attestation/Addendum I personally have seen and examined the patient at the bedside and agree with resident findings, assessment and plan of care. Continue WATER FABRICATOR OPERATOR team to sit up at the edge of the bed for mealtimes and participate with physical therapy. Reassurance given to the patient regarding the negative MRI brain for acute stroke.
--- NOTE | 2024-08-12 15:21 | PC.SS ---
Addendum entered by Amy Martinez 08/12/24 15:49: SS has sent inquiry to the local SNF using [facility]. PT notes are pending. PASRR assessment is completed. Original Note: SS met with pt and to inform them Carley from PT is recommending SNF. Pt is agreeable for short term SNF. Pt and prefer SNF in [facility].
[2024-08-12 16:00] VITALS: BP 156/85; PULSE 79; PULSE 83; RESP 14; TEMP 36.4; O2SAT 97; BMI 12.0
--- NOTE | 2024-08-12 16:38 | ESPR_ITS ---
<Statement entered by Esequiel Fong MD - 08/12/24 19:04> Patient was seen and examined at bedside, he denied any new symptoms. Reported persistence of his weakness. Head CT was negative for any hemorrhage or mass effect, CTA were negative for any major arterial blockage or stenosis. LDL was 60 and triglycerides of 65. MRI was done and that showed no acute stroke or hemorrhage. Most likely his weakness secondary to parkinsonism for that reason we will wait for the neurologist recommendation to adjust Parkinson's medications dosages. We are still pending the echo at this time and will continue the patient on aspirin and Plavix and also atorvastatin. 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 Patient denied any symptoms of active TB. - Patient's plan and care discussed with my attending, Dr. Max Fong MD Internal Medicine PGY-2 Documentation for date of: 08/12/24 Subjective Subjective Interval history: Patient examined at bedside today. No acute overnight events. Says that he takes his isoniazid and rifampin, has history of latent TB per . Denies any CP, SOB, weakness, fatigue, or NEFF. No other complaints at this time. Exam Vital Signs Temp Pulse Resp BP Pulse Ox O2 Del Method O2 Flow Rate 97.5 F 97 18 114/82 99 Nasal Cannula 2 08/12/24 12:00 08/12/24 12:00 08/12/24 12:00 08/12/24 12:00 08/12/24 12:00 08/12/24 12:00 08/12/24 12:00 Narrative Exam General: AAOx3, NAD, HEENT: Moist mucous membranes, conjunctiva clear, EOMI, PERRLA, Cardiovascular: S1, S2, radial pulses +2 bilat, RRR Pulmonary: CTAB bilat no cough, no wheezing GI: No tenderness to light or deep palpitation, no guarding, rigidity, rebound tenderness or distension Extremities: No presence of trace or pitting edema in lower extremities bilaterally, dorsalis pedis pulses +2 bilaterally Neuro: AAOx3, some reduced ROM in UE and LE, however this may be due to parkinsons, able to protrude tounge, shrug shoulders, UE and LE has no sensory deficits Psych: Good judgement, thought and behavior Objective Labs 08/13/24 04:15 08/13/24 04:15 Labs: Laboratory Results - last 24 hr 08/11/24 08/12/24 11:43 04:10 WBC 5.9 RBC 4.05 L Hgb 12.5 L Hct 36.0 L MCV 89 MCH 30.9 MCHC 34.7 RDW Std Deviation 41.4 Plt Count 223 Neut % (Auto) 65 Lymph % (Auto) 22 [place] % (Auto) 11 Eos % (Auto) 1 Baso % (Auto) 0 Neut # (Auto) 3.9 Lymph # (Auto) 1.3 [place] # (Auto) 0.7 Eos # (Auto) 0.0 Baso # (Auto) 0.0 Immature Gran # (Auto) 0.02 H Absolute Nucleated RBC 0.00 Immature Gran % 0 Nucleated RBC % 0 Sodium 138 Potassium 3.7 Chloride 104 Carbon Dioxide 27.2 Anion Gap 7 BUN 16 Creatinine 1.0 Estim Creat Clear Calc Not Performed. eGFR > 60 BUN/Creatinine Ratio [address] Glu mg/dL 111 Hemoglobin A1c 5.5 Calculated Osmolality 275 Calcium 9.4 Corrected Calcium 9.4 Phosphorus 3.5 Magnesium 2.0 Total Bilirubin 1.5 H D AST 24 ALT 12 Alkaline Phosphatase 76 Total Protein 7.0 Albumin 4.3 Globulin 2.7 Albumin/Globulin Ratio 1.6 Triglycerides 65 Cholesterol 126 L LDL Cholesterol, Calc 60 HDL Cholesterol 53 Cholesterol/HDL Ratio 2.4 L TSH 3.51 Quality Measures Quality Measures stroke Suspected type of Stroke: Non Acute Last known well (date): 08/10/24 Last known well (time): 19:00 Tenecteplase given: Reason(s) Tenecteplase not given: Outside the time window not given Rehab services: PT evaluation ordered and Speech Language Pathology eval ordered VTE Prophylaxis: pharmaceutical Antithrombotic by day 2:: ordered Statin ordered: >75 y/o moderate or high intensity dose Anticoagulation ordered for A-fib or flutter (current or hx): ordered Advance care planning discussed with:: patient Assessment & Plan Assessment Current Active Medications: Generic Name Dose Route Start Last Admin Trade Name Freq PRN Reason Stop Dose Admin Acetaminophen 650 mg 08/11/24 17:00 Acetaminophen 325 Mg Tablet PO 09/10/24 16:59 Q6H PRN Fever >100.5 Acetaminophen 650 mg 08/11/24 17:00 Acetaminophen 325 Mg Tablet PO 09/10/24 16:59 Q6H PRN PAIN SCALE 1-3 (mild Aspirin 81 mg 08/12/24 09:00 08/12/24 09:28 Aspirin Ec 81 Mg Tabec PO 09/11/24 08:59 81 mg QDAY JUNE Administration Atorvastatin Calcium 80 mg 08/11/24 21:00 08/11/24 22:02 Atorvastatin Calcium 20 Mg Tablet PO 09/10/24 20:59 Not Given HS JUNE Carbidopa/Levodopa 1 tab 08/11/24 17:30 08/12/24 14:32 Carbidopa/Levodopa 25/100 Mg Tablet PO 09/10/24 17:29 1 tab TID JUNE Administration Rifapentin (Priftin) 0 ea 08/17/24 09:00 150mg Tablets PO 09/16/24 08:59 QWEEK JUNE Enoxaparin Sodium 40 mg 08/11/24 17:15 08/12/24 09:29 Enoxaparin Sod Inj 40 Mg/0.4 Ml Syringe SC 08/25/24 17:14 40 mg QDAY JUNE Administration Isoniazid 900 mg 08/18/24 09:00 Isoniazid 300 Mg Tablet PO 09/17/24 08:59 QWEEK JUNE Labetalol HCl 10 mg 08/11/24 17:18 Labetalol Inj 5 Mg/Ml Vial 20 Ml IVP 09/10/24 17:29 Q6H PRN SBP>220 Ondansetron HCl 4 mg 08/11/24 17:00 Ondansetron Inj 2 Mg/Ml Inj 2 Ml IV 09/10/24 16:59 Q6H PRN NAUSEA OR VOMITING Protocol Plan Assessment 74 y/o M with PMHx of Parkinsons presented due to generalized weakness progressing to left sided weakness on upper and lower extremity as well as some slurred speech. NIHSS of 5 no tPA was given as patient was out of 4.5 hours window who is admitted for CVA rule out. #CVA rule out #Generalized Weakness Patient started developing generalized weakness on 08/10/2024 but the next day developed slurred speech and left upper and lower extremity weakness Tele neuro consulted found with NIHSS of 5, no tPA was given as patient is out of window Head CT showed Negative for acute hemorrhage, mass effect or midline shift Head/Neck CTA showed No significant neck arterial stenoses, No cerebral large vessel arterial occlusions or thrombus TSH 3.51 Lipid panel shows cholesterol 126, LDL 60 and triglycerides 65 A1c 5.5 PT recommending SNF Speech recommends dysphagia 2 diet MRI shows no acute hemorrhage, mass effect or midline shift or LVO Weakness could of been 2/2 Parkinson's Plan: -Follow-up echo - HOB>30 - Neurology consulted, appreciate recommendations - aspiration precautions - Aspirin 81mg - Plavix 75mg - atorvastatin 80mg #Hx of Parkinson disease Plan: -Continue with home carbidopa levodopa #Latent Tb patient on medication prescription shows patient is taking rifampin and isoniazid Patient denies any weight loss, chills, hemoptysis Pt is on home isonizaid and Prifitn, pt will have to use prifitin as we do not have this medicine in our pharmacy Pt received his dose for isonzaid yesterday, takes every other day Plan: ?Continue with home isoniazid, Prifitn will have to be patient's home medicine #Health Maintenance Disposition: Telemetry DVT prophylaxis: Lovenox GI prophylaxis: None indicated at this time Diet: Dysphagia 2 CODE STATUS: Full Patient seen and care discussed with my senior resident, Dr. Fong, and my attending physician, Dr. Max Walls, PGY-1 Attending Provider Attestation/Addendum I have examined the patient, reviewed labs and imaging findings, discussed the case with the resident(s), and reviewed entered orders. I agree with the plan of care as outlined in this note, with these additional summaries/recommendations: Patient seen at bedside. No acute overnight events. Patient still endorsing left-sided weakness although states is improved from yesterday. MRI brain obtained which was negative for acute infraction but did reveal mild chronic microvascular white matter changes. CVA ruled out. Symptoms possibly related to underlying Parkinson's disease. Discontinue Plavix. Resumed home carbidopa levodopa and appreciate dose recommendations. Patient pending echocardiogram read and physical therapy. Patient seen by speech therapy and recommends dysphagia 2 diet. Continue home isoniazid and Priftin for history of latent tuberculosis. Repeat chemistry and hematology panel in AM. Anticipate discharge in the next 24 to [address] Santana
[2024-08-12 20:00] VITALS: BP 147/75; PULSE 77; PULSE 79; RESP 17; TEMP 36.4; O2SAT 95
[2024-08-12] MEDS: ATORVASTATIN CALCIUM 20 MG TABLET 80 MG PO (21:23)
[2024-08-13] VITALS (8 sets, daily range): BP systolic 125–148; BP diastolic 75–94; PULSE 62–79; RESP 17–26; TEMP 35.9–36.6; O2SAT 94–96
[2024-08-13] MEDS: CARBIDOPA/LEVODOPA 25/100 MG TABLET 1 TAB PO (05:23)
[2024-08-13 05:45] LABS: Basophils % (Auto) 0 % (0-2.5); Eosinophils # (Auto) 0.2 Thou/mm3 (0.0-0.5); Eosinophils % (Auto) 4 % (0-10); Hematocrit 35.3 % (41.0-53.0); Hemoglobin 12.1 g/dL (13.5-16.0); Immature Granulocytes % (Auto) 0 % (0-0); Immature Granulocytes Auto 0.02 Thou/mm3 (0.00-0.00); Lymphocytes # (Auto) 1.1 Thou/mm3 (1.0-4.8); Lymphocytes % (Auto) 22 % (10-50); Mean Corpuscular HGB Conc 34.3 g/dl (31.0-37.0); Mean Corpuscular Hemoglobin 30.1 pg (25.0-35.0); Mean Corpuscular Volume 88 fL (80-100); Monocytes # (Auto) 0.6 Thou/mm3 (0.0-0.8); Monocytes % (Auto) 12 % (0-12); Neutrophils # (Auto) 3.2 Thou/mm3 (1.8-7.7); Neutrophils % (Auto) 62 % (37-80); Nucleated Red Blood Cell % 0 /100 WBC (0); Platelet Count 286 Thou/mm3 (140-440); RDW Standard Deviation 41.2 fL (35.1-43.9); Red Blood Count 4.02 Miln/mm3 (4.50-5.90); White Blood Count 5.2 Thou/mm3 (3.8-10.6)
[2024-08-13] MEDS: ACETAMINOPHEN 325 MG TABLET 650 MG PO (06:32)
[2024-08-13 06:38] LABS: Albumin, Serum 4.1 gm/dL (3.4-4.8); Albumin/Globulin Ratio 1.6 (1.2-2.2); Alkaline Phosphatase 73 U/L (46-116); Anion Gap 6 (7-16); Aspartate Amino Transferase 29 U/L (0-34); BUN/Creatinine Ratio 15 Ratio (12-20); Bilirubin,Total 1.1 mg/dL (0.3-1.2); Blood Urea Nitrogen 16 mg/dL (9-23); Calcium 9.2 mg/dL (8.3-10.6); Calcium (Corrected) 9.2 mg/dL (8.5-10.1); Carbon Dioxide 27.9 mMol/L (20.0-31.0); Chloride 104 mMol/L (98-107); Creatinine (Component) 1.1 mg/dL (0.6-1.3); Globulin 2.6 gm/dL (2.3-3.5); Glucose 90 mg/dL (74-106); Magnesium 2.1 mg/dL (1.6-2.6); Osmolality,Calculated 276 (275-295); Phosphorous 3.8 mg/dL (2.4-5.1); Potassium 3.8 mMol/L (3.4-5.1); Sodium 138 mMol/L (136-145); Total Protein 6.7 gm/dL (5.7-8.2); eGFR > 60 See Note
[2024-08-13 06:42] LABS: Alanine Aminotransferase 10 U/L (10-49)
[2024-08-13] MEDS: ENOXAPARIN SOD INJ 40 MG/0.4 ML SYRINGE SC (08:29)
[2024-08-13] MEDS: ASPIRIN EC 81 MG TABEC PO (08:29)
[2024-08-13] MEDS: CLOPIDOGREL BISULFATE 75 MG TABLET PO (10:24)
--- NOTE | 2024-08-13 11:44 | PCS.ST ---
Pt seen for swallow tx. DIRECTOR COST recommends advance diet to D3 with thin liquids at this time.
[2024-08-13] MEDS: CARBIDOPA/LEVODOPA 25/100 MG TABLET 2 TAB PO ×3 (11:50→20:09)
--- NOTE | 2024-08-13 14:27 | PC.NURSE ---
Notified that patients left eye is irritated and reddened and has some white discharge on inner lower lid. Also reminded provider that no orders were received for bowel meds for the patient. Provider to place orders
[2024-08-13] MEDS: POLYETHYLENE GLYCOL 17 GM PACKET PO (14:50)
[2024-08-13] MEDS: SENNA TABLET 1 TAB PO (14:51)
--- NOTE | 2024-08-13 14:56 | ESPR_ITS ---
Documentation for date of: 08/13/24 Subjective Subjective Interval history: Pt examined at bedside today. No acute overnight events. Says he is doing good, is wondering why he cant lift up one of his legs that well. Does not have a headache at this time. Is also wondering when he is going to go home. No other complaints at this time. Exam Vital Signs Temp Pulse Resp BP Pulse Ox O2 Del Method O2 Flow Rate 97.8 F 72 17 132/75 H 94 L Room Air 1 08/13/24 12:00 08/13/24 12:00 08/13/24 12:00 08/13/24 12:00 08/13/24 12:00 08/13/24 12:00 08/12/24 16:00 Narrative Exam General: AAOx3, NAD, [place] speaking male HEENT: Moist mucous membranes, conjunctiva clear, EOMI, PERRLA, Cardiovascular: S1, S2, radial pulses +2 bilat, RRR Pulmonary: CTAB bilat no cough, no wheezing GI: No tenderness to light or deep palpitation, no guarding, rigidity, rebound tenderness or distension Extremities: No presence of trace or pitting edema in lower extremities bilaterally, dorsalis pedis pulses +2 bilaterally Neuro: AAOx3, some reduced ROM in UE and LE, however this may be due to parkinsons, able to protrude tounge, shrug shoulders, UE and LE has no sensory deficits Psych: Good judgement, thought and behavior. Cooperative Objective Labs 08/14/24 05:20 08/14/24 05:20 Labs: Laboratory Results - last 24 hr 08/13/24 04:15 WBC 5.2 RBC 4.02 L Hgb 12.1 L Hct 35.3 L MCV 88 MCH 30.1 MCHC 34.3 RDW Std Deviation 41.2 Plt Count 286 D Neut % (Auto) 62 Lymph % (Auto) 22 [place] % (Auto) 12 Eos % (Auto) 4 Baso % (Auto) 0 Neut # (Auto) 3.2 Lymph # (Auto) 1.1 [place] # (Auto) 0.6 Eos # (Auto) 0.2 Baso # (Auto) 0.0 Immature Gran # (Auto) 0.02 H Absolute Nucleated RBC 0.00 Immature Gran % 0 Nucleated RBC % 0 Sodium 138 Potassium 3.8 Chloride 104 Carbon Dioxide 27.9 Anion Gap 6 L BUN 16 Creatinine 1.1 Estim Creat Clear Calc Not Performed. eGFR > 60 BUN/Creatinine Ratio 15 Glucose 90 Calculated Osmolality 276 Calcium 9.2 Corrected Calcium 9.2 Phosphorus 3.8 Magnesium 2.1 Total Bilirubin 1.1 AST 29 ALT 10 Alkaline Phosphatase 73 Total Protein 6.7 Albumin 4.1 Globulin 2.6 Albumin/Globulin Ratio 1.6 Quality Measures Quality Measures stroke Suspected type of Stroke: Non Acute Last known well (date): 08/10/24 Last known well (time): 19:00 Tenecteplase given: Reason(s) Tenecteplase not given: Outside the time window not given Rehab services: PT evaluation ordered VTE Prophylaxis: pharmaceutical Antithrombotic by day 2:: not indicated (describe) Statin ordered: >75 y/o moderate or high intensity dose Anticoagulation ordered for A-fib or flutter (current or hx): not indicated Advance care planning discussed with:: patient Assessment & Plan Assessment Current Active Medications: Generic Name Dose Route Start Last Admin Trade Name Freq PRN Reason Stop Dose Admin Acetaminophen 650 mg 08/11/24 17:00 Acetaminophen 325 Mg Tablet PO 09/10/24 16:59 Q6H PRN Fever >100.5 Acetaminophen 650 mg 08/11/24 17:00 08/13/24 06:32 Acetaminophen 325 Mg Tablet PO 09/10/24 16:59 650 mg Q6H PRN Administration PAIN SCALE 1-3 (mild Aspirin 81 mg 08/12/24 09:00 08/13/24 08:29 Aspirin Ec 81 Mg Tabec PO 09/11/24 08:59 81 mg QDAY JUNE Administration Atorvastatin Calcium 40 mg 08/13/24 21:00 Atorvastatin Calcium 20 Mg Tablet PO 09/12/24 20:59 HS JUNE Carbidopa/Levodopa 2 tab 08/13/24 12:00 08/13/24 11:50 Carbidopa/Levodopa 25/100 Mg Tablet PO 09/12/24 11:59 2 tab QID JUNE Administration Rifapentin (Priftin) 0 ea 08/17/24 09:00 150mg Tablets PO 09/16/24 08:59 QWEEK JUNE Enoxaparin Sodium 40 mg 08/11/24 17:15 08/13/24 08:29 Enoxaparin Sod Inj 40 Mg/0.4 Ml Syringe SC 08/25/24 17:14 40 mg QDAY JUNE Administration Isoniazid 900 mg 08/18/24 09:00 Isoniazid 300 Mg Tablet PO 09/17/24 08:59 QWEEK JUNE Labetalol HCl 10 mg 08/11/24 17:18 Labetalol Inj 5 Mg/Ml Vial 20 Ml IVP 09/10/24 17:29 Q6H PRN SBP>220 Ondansetron HCl 4 mg 08/11/24 17:00 Ondansetron Inj 2 Mg/Ml Inj 2 Ml IV 09/10/24 16:59 Q6H PRN NAUSEA OR VOMITING Protocol Sennosides 1 tab 08/13/24 14:27 08/13/24 14:51 Senna Tablet PO 09/12/24 14:26 1 tab QDAY PRN Administration CONSTIPATION Protocol Plan Assessment 74 y/o M with PMHx of Parkinsons presented due to generalized weakness progressing to left sided weakness on upper and lower extremity as well as some slurred speech. NIHSS of 5 no tPA was given as patient was out of 4.5 hours window who is admitted for CVA rule out. #CVA, ruled out #Generalized Weakness, improving Patient started developing generalized weakness on 08/10/2024 but the next day developed slurred speech and left upper and lower extremity weakness Tele neuro consulted found with NIHSS of 5, no tPA was given as patient is out of window Head CT showed Negative for acute hemorrhage, mass effect or midline shift Head/Neck CTA showed No significant neck arterial stenoses, No cerebral large vessel arterial occlusions or thrombus TSH 3.51 Lipid panel shows cholesterol 126, LDL 60 and triglycerides 65 A1c 5.5 PT recommending SNF Speech recommends dysphagia 2 diet MRI shows no acute hemorrhage, mass effect or midline shift or LVO Weakness could of been 2/2 Parkinson's Echo is negative for both study, grade 1 diastolic dysfunction, EF of 60-65% Will continue with aspirin and Plavix at this time, however MRI was negative for hemorrhage, mass effect, midline shift or LVO Will need to discuss with neurology if we need to continue Plavix upon d/c Weakness likely related to Parkinson's disease SNF upon d/c, needs authorization at this time Plan: - HOB>30 - Neurology consulted, appreciate recommendations - aspiration precautions - Aspirin 81mg - Plavix 75mg - atorvastatin 80mg #Hx of Parkinson disease Patient may need increased dose of carbidopa levodopa as patient is still having weakness Will touch base with neurology to see what they further recommend Return patient's carbidopa back to home dose of Plan: -Continue with home carbidopa levodopa two tabs QID #Latent Tb patient on medication prescription shows patient is taking rifampin and isoniazid Patient denies any weight loss, chills, hemoptysis Pt is on home isonizaid and Prifitn, pt will have to use prifitin as we do not have this medicine in our pharmacy Pt received his dose for isonzaid yesterday, takes every other day r Pt's Isonizid may interact with Plavix, will need to see if pt will be taking plavix upon d/c Plan: ?Continue with home isoniazid, Prifitin will have to be patient's home medicine #Health Maintenance Disposition: Telemetry DVT prophylaxis: Lovenox GI prophylaxis: None indicated at this time Diet: Dysphagia 2 CODE STATUS: Full Patient seen and care discussed with my senior resident, Dr. Guzman, and my attending physician, Dr. Max Walls, PGY-1 Senior resident attestation: Patient evaluated and examined at the bedside, plan of care discussed with rest of the team including my attending physician, except as noted. Patient is a 74-year-old male with a past medical history of Parkinson's disease, on carbidopa levodopa, who has had multiple previous admissions for strokelike symptoms, had brain MRI few weeks ago, now presented again with generalized weakness progressing to left-sided weakness, slurred speech. Stroke alert was called in the ER, brain MRI showed no acute stroke, CTA showed no LVO. Stroke ruled out, in-house neurology consulted, appreciate Dr. Mckay's recommendations. Patient started on aspirin and Plavix initially, but after acute stroke is ruled out, we discontinued Plavix. Increase the patient's carbidopa levodopa dose to match home dosing 2 tablets 4 times daily. Patient is pending placement to SNF, request 3 midnight stay in hospital. #Parkinson's disease #Acute CVA ruled out #Generalized weakness #Latent TB?continue isoniazid and rifapentine as prescribed. Megan PGY2 Attending Provider Attestation/Addendum I have examined the patient, reviewed labs and imaging findings, discussed the case with the resident(s), and reviewed entered orders. I agree with the plan of care as outlined in this note, with these additional summaries/recommendations: Patient seen at bedside. No acute overnight events. Patient continues to endorse generalized weakness which is worse in his lower extremities. MRI was negative for acute fraction but did reveal mild chronic microvascular white matter changes. Acute CVA ruled out. Suspect patient's symptoms are secondary to his underlying Parkinson's disease rather than TIA as symptoms are still present. We will discuss with neurology about discontinuing Plavix and appreciate recommendations on carbidopa/levodopa dosage. Continue dysphagia 2 diet. Continue home isoniazid & Priftin for history of latent tuberculosis. Repeat hematology and chemistry panel in AM. Patient will be discharged to SNF when medically cleared. Dr. Santana
[2024-08-13] MEDS: ATORVASTATIN CALCIUM 20 MG TABLET 40 MG PO (20:08)
[2024-08-13] MEDS: MOXIFLOXACIN OP SOL 0.5% 3 ML BTL 1 DROP LEFT EYE (21:10)
--- NOTE | 2024-08-13 21:22 | ESPR_ITS ---
Documentation for date of: 08/13/24 Subjective Subjective Interval history: Patient was seen in telemetry today with no new symptoms reported. He still feels generally weak all over. Tolerating oral diet well. Exam - Neurology Vital Signs Temp Pulse Resp BP Pulse Ox O2 Del Method O2 Flow Rate 97.9 F 79 20 129/83 96 Room Air 1 08/13/24 20:00 08/13/24 20:00 08/13/24 20:00 08/13/24 20:00 08/13/24 20:00 08/13/24 20:00 08/13/24 15:41 Narrative Exam GENERAL APPEARANCE: Well developed, obese built male in no acute distress. HEENT: Normocephalic, atraumatic, extraocular movements intact. Pupils: Equal reacting to light and accommodation, tympanic membranes are bilaterally intact. There is no bulge or retraction. Throat without erythema or exudate. Moist oral mucosa. NECK: Supple, no JVD or bruits. CARDIOVASULAR: Heart: S1, S2 heard, regular without S3-S4 or murmur no rubs or gallops. LUNGS/CHEST: Clear to auscultation bilaterally. No rails, rhonchi, or wheezing. Normal inspection. ABDOMEN: Soft, nontender, with normal bowel sounds. No pulsatile masses. No rebound, rigidity, or guarding. Normal inspection and palpation. EXTREMITIES: Normal inspection and palpation. No edema, clubbing or cyanosis. SKIN: Warm and dry without rashes. Normal inspection. MUSCULOSKELETAL: No cervical, thoracic, lumbar or midline bony tenderness. Normal inspection. NEURO: Alert, awake and oriented x3. Cranial nerves: II through XII grossly intact. Speech and language: Normal with no dysarthria or dysphasia. Motor system: Tone and bulk: Normal: Strength: 5 out of 5 in all 4 extremities; pronator drift noted. Deep tendon reflexes: 2+ bilaterally symmetrical. Plantar reflex: Downgoing bilaterally. Sensory system: Intact to all modalities of sensation bilaterally. Coordination: Intact to [id number] and mjkt-[id number] test bilaterally. He has signs of Parkinson's disease with rest tremors, cogwheeling, bradykinesia and masked facial expression with postural instability. Gait: Could not be tested as he is very weak and ataxic, no signs of meningeal irritation noted. PSYCHIATRIC: Normal mood and affect. Denies homicidal or suicidal ideation. Objective Labs 08/13/24 04:15 08/13/24 04:15 Labs: Laboratory Results - last 24 hr 08/13/24 04:15 WBC 5.2 RBC 4.02 L Hgb 12.1 L Hct 35.3 L MCV 88 MCH 30.1 MCHC 34.3 RDW Std Deviation 41.2 Plt Count 286 D Neut % (Auto) 62 Lymph % (Auto) 22 [place] % (Auto) 12 Eos % (Auto) 4 Baso % (Auto) 0 Neut # (Auto) 3.2 Lymph # (Auto) 1.1 [place] # (Auto) 0.6 Eos # (Auto) 0.2 Baso # (Auto) 0.0 Immature Gran # (Auto) 0.02 H Absolute Nucleated RBC 0.00 Immature Gran % 0 Nucleated RBC % 0 Sodium 138 Potassium 3.8 Chloride 104 Carbon Dioxide 27.9 Anion Gap 6 L BUN 16 Creatinine 1.1 Estim Creat Clear Calc Not Performed. eGFR > 60 BUN/Creatinine Ratio 15 Glucose 90 Calculated Osmolality 276 Calcium 9.2 Corrected Calcium 9.2 Phosphorus 3.8 Magnesium 2.1 Total Bilirubin 1.1 AST 29 ALT 10 Alkaline Phosphatase 73 Total Protein 6.7 Albumin 4.1 Globulin 2.6 Albumin/Globulin Ratio 1.6 Assessment & Plan Assessment and plan (1) Parkinsons disease: Status: Acute Additional Assessment & Plan Additional Plan: Reassurance given to the patient work-up is negative for acute ischemic stroke, his presenting symptoms are secondary to Parkinson's disease with freezing phenomena. Continue with the Sinemet and Nourianz with close monitoring for visual hallucination. Motivated to participate with physical therapy sessions
[2024-08-14] VITALS (8 sets, daily range): BP systolic 134–169; BP diastolic 81–96; PULSE 65–105; RESP 18–34; TEMP 36–36.4; O2SAT 94–97
[2024-08-14] MEDS: MOXIFLOXACIN OP SOL 0.5% 3 ML BTL 1 DROP LEFT EYE ×3 (05:33→21:05)
[2024-08-14] MEDS: CARBIDOPA/LEVODOPA 25/100 MG TABLET 2 TAB PO ×4 (05:33→21:05)
[2024-08-14 06:18] LABS: Basophils % (Auto) 1 % (0-2.5); Eosinophils # (Auto) 0.3 Thou/mm3 (0.0-0.5); Eosinophils % (Auto) 4 % (0-10); Hematocrit 39.2 % (41.0-53.0); Hemoglobin 13.4 g/dL (13.5-16.0); Immature Granulocytes % (Auto) 0 % (0-0); Immature Granulocytes Auto 0.02 Thou/mm3 (0.00-0.00); Lymphocytes # (Auto) 1.2 Thou/mm3 (1.0-4.8); Lymphocytes % (Auto) 15 % (10-50); Mean Corpuscular HGB Conc 34.2 g/dl (31.0-37.0); Mean Corpuscular Hemoglobin 30.4 pg (25.0-35.0); Mean Corpuscular Volume 89 fL (80-100); Monocytes # (Auto) 0.7 Thou/mm3 (0.0-0.8); Monocytes % (Auto) 8 % (0-12); Neutrophils % (Auto) 73 % (37-80); Nucleated Red Blood Cell % 0 /100 WBC (0); Platelet Count 255 Thou/mm3 (140-440); RDW Standard Deviation 41.6 fL (35.1-43.9); Red Blood Count 4.41 Miln/mm3 (4.50-5.90); White Blood Count 8.2 Thou/mm3 (3.8-10.6)
[2024-08-14 07:04] LABS: Albumin, Serum 4.3 gm/dL (3.4-4.8); Albumin/Globulin Ratio 1.5 (1.2-2.2); Alkaline Phosphatase 80 U/L (46-116); Anion Gap 6 (7-16); Aspartate Amino Transferase 40 U/L (0-34); BUN/Creatinine Ratio 17 Ratio (12-20); Bilirubin,Total 0.7 mg/dL (0.3-1.2); Blood Urea Nitrogen 15 mg/dL (9-23); Calcium 9.6 mg/dL (8.3-10.6); Calcium (Corrected) 9.6 mg/dL (8.5-10.1); Carbon Dioxide 27.6 mMol/L (20.0-31.0); Chloride 104 mMol/L (98-107); Creatinine (Component) 0.9 mg/dL (0.6-1.3); Globulin 2.9 gm/dL (2.3-3.5); Glucose 98 mg/dL (74-106); Osmolality,Calculated 276 (275-295); Phosphorous 3.4 mg/dL (2.4-5.1); Sodium 138 mMol/L (136-145); Total Protein 7.2 gm/dL (5.7-8.2); eGFR > 60 See Note
[2024-08-14 07:07] LABS: Alanine Aminotransferase < 7 U/L (10-49)
[2024-08-14] MEDS: ASPIRIN EC 81 MG TABEC PO (08:15)
[2024-08-14] MEDS: ENOXAPARIN SOD INJ 40 MG/0.4 ML SYRINGE SC (08:15)
[2024-08-14] MEDS: amLODIPine BESYLATE 5 MG TABLET 10 MG PO (08:15)
--- NOTE | 2024-08-14 10:13 | ESDS_ITS ---
Planned Discharge Date 08/14/24 DS: Providers Provider Date of admission: 08/11/24 16:53 Primary care physician: Physician No Primary/Family Admitting Provider: Adrian Santana MD Attending Provider on Admission: Adrian Santana MD Consults: 08/11/24 10:53 Consult to Neurology / Tele-Neurology Routine Comment: Consulting Provider: [facility] 08/11/24 17:06 Referral Physical Therapy Stat Comment: Physician Instructions: Referral Speech Therapy Stat Comment: 08/11/24 17:18 Consult to Neurology / Tele-Neurology Stat Comment: Consulting Provider: Serge Mckay 08/14/24 10:08 Referral Eufemia Stat Comment: Attending Provider on DC: Adrian Santana MD Discharging Provider: Gilbert Beckford MD Anticipated date of discharge: 08/14/24 DS: Diagnosis Problem List Completed Was Problem List Reviewed/Reconciled?: Yes Hospital Course Hospital Course Hospital course: 74 y/o M with PMHx of Parkinsons disease, presented to the ED after developing generalized weakness progressing to left sided weakness on upper and lower extremity as well as some slurred speech. NIHSS of 5 no tPA was given as patient was out of 4.5 hours window. Admitted for Stroke work up. During hospital stay patient underwent stroke protocol including, Head CT, Head/Neck CTA and MRI all which were negative for acute stroke. Echocardiogram was also done as part of work up for stroke and showed normal EF with no signs of PFO. Neurology, Dr. Mckay was also consulted and recommended to continue patient on aspirin. Patient has history of Parkinsons Disease for which his home medications were resumed. Patient also has history of Latent TB and his medications of isonizid and rifampin were resumed as prescribed. Patient had cultures done which showed urinary tract infection for which antibiotic therapy was provided. At this time patient is medically stable for discharge. Please continue antibiotics for 7 more days for UTI. Please follow-up with neurology Dr Mckay within 1 to 2 weeks of discharge from hospital. Please follow-up with your primary care physician within 1 week of discharge from the hospital. In case of worsening symptoms please return to the emergency room. Problem List: #CVA, ruled out #Generalized Weakness, improving #Hx of Parkinson disease #Latent Tb Case discussed with my attending Dr. Max Beckford MD PGY-1 Status at Discharge Functional status at discharge: independent ambulation Overall status at discharge: patient is progressing back to baseline Time Spent with Patient Time attestation: Total time spent providing and/or coordinating discharge services: Time spent: Greater than 30 minutes Exam Vital Signs Temp Pulse Resp BP Pulse Ox O2 Del Method O2 Flow Rate 96.9 F 77 22 H 142/83 H 95 Room Air 1 08/14/24 04:00 08/14/24 08:15 08/14/24 04:00 08/14/24 08:15 08/14/24 04:00 08/14/24 04:00 08/13/24 15:41 Narrative Exam Physical Exam GENERAL: NAD, AAOx3 HEENT: Moist mucosa. Eyes open, symmetrical, & clear CARDIO: Heart RRR, no obvious murmurs PULM: No noted coughing/dyspnea CTA B/L, no R/W/R GI: Abdomen soft, nondistended, no pain on palpation. BSx4 SKIN/MSK/EXT: No wounds/rashes/edema/amputations, no pain on palpation. Pedal pulses present B/L NEURO: AAOx3, no focal neuro deficits, able to move all 4 extremities Discharge Plan Plan Patient Disposition: Xfer Skilled Nsg Fac (SNF) Disposition Comment: Hospitalist admit neurology consult Care Plan Goals: Please continue antibiotics for 7 more days for UTI. Please follow-up with neurology Dr Mckay within 1 to 2 weeks of discharge from hospital. Please follow-up with your primary care physician within 1 week of discharge from the hospital. In case of worsening symptoms please return to the emergency room. Prescriptions/Referrals Prescriptions/Med Rec: New aspirin 81 mg Tablet,Delayed Release (Dr/Ec) 81 mg PO QDAY 30 Days Qty: 30 0RF atorvastatin 40 mg tablet 40 mg PO HS 30 Days Qty: 30 0RF artifi.tears(hypromellose)(PF) 1.7 % drops with applicator 1 drp ophthalmic (eye) Q8H PRN (Reason: dry eye(s)) Qty: 12 0RF cephalexin 500 mg capsule 500 mg PO BID 7 Days Qty: 14 0RF Continued Nourianz 40 mg Tablet 40 mg PO QDAY carbidopa-levodopa 25-100 mg tablet 2 tab PO 4XD Priftin 150 mg tablet 900 mg PO QWEEK isoniazid 300 mg tablet 900 mg PO QWEEK Patient Comments: JOSPEHINE BATESS TABLETAS POR V A ORAL SEMANALMENTE Referrals: No Primary/Family,Physician [Primary Care Provider] - Patient/Caregiver Discharge Instructions Education Materials: Parkinson Disease Common Sx, Parkinson Disease Meds, Exercise for Parkinson Disease, Parkinson Disease Caregiver Print Language: Arabic Stand Alone Forms: Lianet Award Info., Patient Portal Info Letter Discharge Order Discharge Orders: Discharge (Routine); Ordered 08/14/24 Ordered By: Gilbert Beckford Quality Discharge Quality Measures VTE prophylaxis MD Attestestation MD Attestation I have examined the patient, reviewed labs and imaging findings, discussed the case with the resident(s), and reviewed entered orders. I agree with the plan of care as outlined in this note. Dr. Santana
--- NOTE | 2024-08-14 12:16 | PC.SS ---
Addendum entered by Peg Walton 08/14/24 15:14: SW spoke to Marita, she requested [facility]. SW notified Admission Coordinator, Milvia. Original Note: Senior Telecommunications Consultant (TIERRA) Peg contacted patient's , Marita via telephone call. Marita reported that she was in person at the hospital. SW met with Marita at the patient's room. SW introduced self, role and reason for visit. SW informed that only accepting facilities [facility]. TIERRA provided pamphlets for both facilities. TIERRA will follow up with Marita to inquire about facility choice. Patient will need insurance authorization as well.
[2024-08-14] MEDS: cefTRIAXone/D5w 1gm IV premix 50 ML IV (12:55)
[2024-08-14] MEDS: ATORVASTATIN CALCIUM 20 MG TABLET 40 MG PO (21:05)
--- NOTE | 2024-08-14 23:34 | VVPN_ITS ---
Telemedicine visit statement This visit was conducted with the use of interactive audio and video telecommunications system that permits real time communication between the patient and the provider. Patient's verbal consent for virtual visit was obtained on 08/14/24 at 2334. Documentation for date of: 08/14/24 Virtual exam Vital Signs Temp Pulse Resp BP Pulse Ox O2 Del Method O2 Flow Rate 97.3 F 105 H 34 H 134/91 H 94 L Room Air 1 08/14/24 20:00 08/14/24 20:00 08/14/24 20:00 08/14/24 20:00 08/14/24 20:00 08/14/24 20:00 08/13/24 15:41 Objective Labs 08/14/24 05:20 08/14/24 05:20 Labs: Laboratory Results - last 24 hr 08/14/24 05:20 WBC 8.2 D RBC 4.41 L Hgb 13.4 L Hct 39.2 L MCV 89 MCH 30.4 MCHC 34.2 RDW Std Deviation 41.6 Plt Count 255 D Neut % (Auto) 73 Lymph % (Auto) 15 [place] % (Auto) 8 Eos % (Auto) 4 Baso % (Auto) 1 Neut # (Auto) 6.0 Lymph # (Auto) 1.2 [place] # (Auto) 0.7 Eos # (Auto) 0.3 Baso # (Auto) 0.0 Immature Gran # (Auto) 0.02 H Absolute Nucleated RBC 0.00 Immature Gran % 0 Nucleated RBC % 0 Sodium 138 Potassium 4.0 Chloride 104 Carbon Dioxide 27.6 Anion Gap 6 L BUN 15 Creatinine 0.9 Estim Creat Clear Calc Not Performed. eGFR > 60 BUN/Creatinine Ratio 17 Glucose 98 Calculated Osmolality 276 Calcium 9.6 Corrected Calcium 9.6 Phosphorus 3.4 Magnesium 2.0 Total Bilirubin 0.7 AST 40 H ALT < 7 L Alkaline Phosphatase 80 Total Protein 7.2 Albumin 4.3 Globulin 2.9 Albumin/Globulin Ratio 1.5
[2024-08-15] VITALS (9 sets, daily range): BP systolic 112–140; BP diastolic 61–84; PULSE 66–96; RESP 16–24; TEMP 36.1–36.9; O2SAT 94–98; BMI 12.0; BMI 32.1
[2024-08-15] MEDS: MOXIFLOXACIN OP SOL 0.5% 3 ML BTL 1 DROP LEFT EYE (05:29)
[2024-08-15] MEDS: CARBIDOPA/LEVODOPA 25/100 MG TABLET 2 TAB PO ×4 (05:29→20:21)
[2024-08-15 06:16] LABS: Basophils % (Auto) 0 % (0-2.5); Eosinophils # (Auto) 0.4 Thou/mm3 (0.0-0.5); Eosinophils % (Auto) 5 % (0-10); Hematocrit 37.6 % (41.0-53.0); Hemoglobin 13.2 g/dL (13.5-16.0); Immature Granulocytes % (Auto) 0 % (0-0); Immature Granulocytes Auto 0.02 Thou/mm3 (0.00-0.00); Lymphocytes % (Auto) 12 % (10-50); Mean Corpuscular HGB Conc 35.1 g/dl (31.0-37.0); Mean Corpuscular Hemoglobin 31.1 pg (25.0-35.0); Mean Corpuscular Volume 89 fL (80-100); Monocytes # (Auto) 0.8 Thou/mm3 (0.0-0.8); Monocytes % (Auto) 10 % (0-12); Neutrophils # (Auto) 5.8 Thou/mm3 (1.8-7.7); Neutrophils % (Auto) 72 % (37-80); Nucleated Red Blood Cell % 0 /100 WBC (0); Platelet Count 247 Thou/mm3 (140-440); Red Blood Count 4.25 Miln/mm3 (4.50-5.90)
[2024-08-15 06:36] LABS: Alanine Aminotransferase 35 U/L (10-49); Albumin, Serum 4.3 gm/dL (3.4-4.8); Albumin/Globulin Ratio 1.6 (1.2-2.2); Alkaline Phosphatase 81 U/L (46-116); Anion Gap 8 (7-16); Aspartate Amino Transferase 26 U/L (0-34); BUN/Creatinine Ratio 16 Ratio (12-20); Bilirubin,Total 0.9 mg/dL (0.3-1.2); Blood Urea Nitrogen 16 mg/dL (9-23); Calcium 9.2 mg/dL (8.3-10.6); Calcium (Corrected) 9.2 mg/dL (8.5-10.1); Carbon Dioxide 27.3 mMol/L (20.0-31.0); Chloride 102 mMol/L (98-107); Globulin 2.7 gm/dL (2.3-3.5); Glucose 88 mg/dL (74-106); Osmolality,Calculated 274 (275-295); Phosphorous 4.1 mg/dL (2.4-5.1); Potassium 3.8 mMol/L (3.4-5.1); Sodium 137 mMol/L (136-145); eGFR > 60 See Note
[2024-08-15] MEDS: POTASSIUM CHLORIDE 20 mEq TABCR 40 MEQ PO (09:00)
[2024-08-15] MEDS: amLODIPine BESYLATE 5 MG TABLET 10 MG PO (09:55)
[2024-08-15] MEDS: ASPIRIN EC 81 MG TABEC PO (09:55)
[2024-08-15] MEDS: ENOXAPARIN SOD INJ 40 MG/0.4 ML SYRINGE SC (09:55)
--- NOTE | 2024-08-15 10:00 | PC.NURSE ---
Per Nilson, restraints (mittens) removed. explained to pt that he must not pull at IV, pt agrees to comply
--- NOTE | 2024-08-15 11:45 | PC.SS ---
Follow up note: SS met with pt and to confirm d/c to [facility]. SS was informed by bedside nurse, Linda who explained pt was on restraints due to trying to remove his IV line. Restraints were removed at 10 this morning, per nurse. SS has informed Es at [facility]. Per Es at [facility], pt has to be off restraints for 24 hours. Es at [facility] states she has received the number for insurance authorization and can accept pt tomorrow. Pt and are aware.
--- NOTE | 2024-08-15 13:11 | ESPR_ITS ---
Documentation for date of: 08/15/24 ATTESTATION: I saw and examined the patient this morning, and I agree with current management stated by the resident. Will continue to monitor patient during their stay. Patient was admitted initially for stroke rule out as he was having left sided weakness. Patient's imaging has ruled out any strokes at this time and his symptoms may be related to worsening Parkinson symptoms. Patient will be discharged tomorrow to rehab facility for further physical rehabilitation. Disclaimer: Despite multiple revisions, due to the dictation software being used, the document bellow may not be free of grammatical errors including phonetic/typographic errors. However, this does not deter from our commitment to providing health care in the patient's best interest in mind. Dr. Jerry Benton, PGY-3 Subjective Subjective Interval history: Patient seen today at the bedside found awake, alert, oriented x3. Overnight patient became agitated and was placed on soft restraints. States no active complaints, denies visual hallucinations at this time. Due to soft restraints patient will be required to stay in patient for next 24 hours. Vital signs stable at this time. Labs unremarkable. Anticipate discharge in the next 24 hours. Exam Vital Signs Temp Pulse Resp BP Pulse Ox O2 Del Method O2 Flow Rate 98.5 F 72 17 119/61 95 Room Air 1 08/15/24 11:44 08/15/24 11:44 08/15/24 11:44 08/15/24 11:44 08/15/24 11:44 08/15/24 11:44 08/13/24 15:41 Narrative Exam Physical exam: General: AAOx3, NAD, Danish speaking male HEENT: Moist mucous membranes, conjunctiva clear, EOMI, PERRLA, Cardiovascular: S1, S2, radial pulses +2 bilat, RRR Pulmonary: CTAB bilat no cough, no wheezing GI: No tenderness to light or deep palpitation, no guarding, rigidity, rebound tenderness or distension Extremities: No presence of trace or pitting edema in lower extremities bilaterally, dorsalis pedis pulses +2 bilaterally Neuro: AAOx3, some reduced ROM in UE and LE, however this may be due to parkinsons, able to protrude tounge, shrug shoulders, UE and LE has no sensory deficits Psych: Good judgement, thought and behavior. Cooperative Objective Labs 08/16/24 05:43 08/16/24 05:43 Labs: Laboratory Results - last 24 hr 08/15/24 05:11 WBC 8.0 RBC 4.25 L Hgb 13.2 L Hct 37.6 L MCV 89 MCH 31.1 MCHC 35.1 RDW Std Deviation 41.0 Plt Count 247 Neut % (Auto) 72 Lymph % (Auto) 12 [place] % (Auto) 10 Eos % (Auto) 5 Baso % (Auto) 0 Neut # (Auto) 5.8 Lymph # (Auto) 1.0 [place] # (Auto) 0.8 Eos # (Auto) 0.4 Baso # (Auto) 0.0 Immature Gran # (Auto) 0.02 H Absolute Nucleated RBC 0.00 Immature Gran % 0 Nucleated RBC % 0 Sodium 137 Potassium 3.8 Chloride 102 Carbon Dioxide 27.3 Anion Gap 8 BUN 16 Creatinine 1.0 Estim Creat Clear Calc Not Performed. eGFR > 60 BUN/Creatinine Ratio 16 Glucose 88 Calculated Osmolality 274 L Calcium 9.2 Corrected Calcium 9.2 Phosphorus 4.1 Magnesium 2.0 Total Bilirubin 0.9 AST 26 ALT 35 Alkaline Phosphatase 81 Total Protein 7.0 Albumin 4.3 Globulin 2.7 Albumin/Globulin Ratio 1.6 Quality Measures Quality Measures VTE prophylaxis Advance care planning discussed with:: patient and spouse Assessment & Plan Assessment Current Active Medications: Generic Name Dose Route Start Last Admin Trade Name Freq PRN Reason Stop Dose Admin Acetaminophen 650 mg 08/11/24 17:00 Acetaminophen 325 Mg Tablet PO 09/10/24 16:59 Q6H PRN Fever >100.5 Acetaminophen 650 mg 08/11/24 17:00 08/13/24 06:32 Acetaminophen 325 Mg Tablet PO 09/10/24 16:59 650 mg Q6H PRN Administration PAIN SCALE 1-3 (mild Amlodipine Besylate 10 mg 08/14/24 09:00 08/15/24 09:55 Amlodipine Besylate 5 Mg Tablet PO 09/13/24 08:59 10 mg QDAY JUNE Administration Aspirin 81 mg 08/12/24 09:00 08/15/24 09:55 Aspirin Ec 81 Mg Tabec PO 09/11/24 08:59 81 mg QDAY JUNE Administration Atorvastatin Calcium 40 mg 08/13/24 21:00 08/14/24 21:05 Atorvastatin Calcium 20 Mg Tablet PO 09/12/24 20:59 40 mg HS JUNE Administration Carbidopa/Levodopa 2 tab 08/13/24 12:00 08/15/24 12:50 Carbidopa/Levodopa 25/100 Mg Tablet PO 09/12/24 11:59 2 tab QID JUNE Administration Rifapentin (Priftin) 0 ea 08/17/24 09:00 150mg Tablets PO 09/16/24 08:59 QWEEK JUNE Enoxaparin Sodium 40 mg 08/11/24 17:15 08/15/24 09:55 Enoxaparin Sod Inj 40 Mg/0.4 Ml Syringe SC 08/25/24 17:14 40 mg QDAY JUNE Administration Isoniazid 900 mg 08/18/24 09:00 Isoniazid 300 Mg Tablet PO 09/17/24 08:59 QWEEK JUNE Labetalol HCl 10 mg 08/11/24 17:18 Labetalol Inj 5 Mg/Ml Vial 20 Ml IVP 09/10/24 17:29 Q6H PRN SBP>220 Moxifloxacin HCl 1 drop 08/13/24 22:00 08/15/24 05:29 Moxifloxacin Op Sarai 0.5% 3 Ml Btl LEFT EYE 09/12/24 21:59 1 drop TID JUNE Administration Ondansetron HCl 4 mg 08/11/24 17:00 Ondansetron Inj 2 Mg/Ml Inj 2 Ml IV 09/10/24 16:59 Q6H PRN NAUSEA OR VOMITING Protocol Sennosides 1 tab 08/13/24 14:27 08/13/24 14:51 Senna Tablet PO 09/12/24 14:26 1 tab QDAY PRN Administration CONSTIPATION Protocol Plan 74 y/o M with PMHx of Parkinsons presented due to generalized weakness progressing to left sided weakness on upper and lower extremity as well as some slurred speech. NIHSS of 5 no tPA was given as patient was out of 4.5 hours window. Admitted for Stroke work up. #CVA ruled out Patient started developing generalized weakness on 08/10/2024 but the next day developed slurred speech and left upper and lower extremity weakness Tele neuro consulted found with NIHSS of 5, no tPA was given as patient is out of window Head CT showed Negative for acute hemorrhage, mass effect or midline shift Head/Neck CTA showed No significant neck arterial stenoses, No cerebral large vessel arterial occlusions or thrombus TSH 3.51 Lipid panel shows cholesterol 126, LDL 60 and triglycerides 65 A1c 5.5 PT recommending SNF Speech recommends dysphagia 3 diet MRI shows no acute hemorrhage, mass effect or midline shift or LVO Echo is negative for both study, grade 1 diastolic dysfunction, EF of 60-65% Will continue with aspirin and Plavix at this time - HOB>30 - Neurology consulted, appreciate recommendations - aspiration precautions - Aspirin 81mg - Plavix 75mg - atorvastatin 40mg #Hx of Parkinson disease - resumed Carbidopa levodopa as taken at home #?Latent Tb patient on medication prescription shows patient is taking rifampin and isoniazid Patient denies any weight loss, chills, hemoptysis -resumed isoniazid and rifampin as prescribed Case discussed with my senior Dr. Benton PGY-[address] Sonya Beckford MD PGY-1 Disposition: Tele Fluids: None Feeding: Dyspnagia 3 Thrombo prophylaxis: Lovenox Gastric Ulcer prophylaxis: none CODE STATUS: Full code Attending Provider Attestation/Addendum I have discussed and was present for the essential components of the history, physical examination, diagnosis, and treatment plan with the resident. I agree with the patient's care as documented by the resident and amended herein by me. Jose Hassan DO. Although this document has been carefully reviewed, there may still be some phonetic and other typographical errors. These errors are purely grammatical due to imperfections in the software program and should not be construed in any way to compromise the substance of the patient's medical care during this visit.
[2024-08-15] MEDS: ATORVASTATIN CALCIUM 20 MG TABLET 40 MG PO (20:21)
--- NOTE | 2024-08-15 23:18 | ESPR_ITS ---
Documentation for date of: 08/15/24 Subjective Subjective Interval history: Patient was seen in telemetry today with no new symptoms reported. He still feels generally weak all over. Tolerating oral diet well. Exam - Neurology Vital Signs Temp Pulse Resp BP Pulse Ox O2 Del Method O2 Flow Rate 97 F 74 23 H 114/69 96 Room Air 1 08/15/24 19:38 08/15/24 19:38 08/15/24 19:38 08/15/24 19:38 08/15/24 19:38 08/15/24 19:38 08/13/24 15:41 Narrative Exam GENERAL APPEARANCE: Well developed, obese built male in no acute distress. HEENT: Normocephalic, atraumatic, extraocular movements intact. Pupils: Equal reacting to light NECK: Supple, no JVD or bruits. CARDIOVASULAR: Heart: S1, S2 heard, regular without S3-S4 or murmur no rubs or gallops. LUNGS/CHEST: Clear to auscultation bilaterally. No rails, rhonchi, or wheezing. Normal inspection. ABDOMEN: Soft, nontender, with normal bowel sounds. No pulsatile masses. No rebound, rigidity, or guarding. Normal inspection and palpation. EXTREMITIES: Normal inspection and palpation. No edema, clubbing or cyanosis. SKIN: Warm and dry without rashes. Normal inspection. MUSCULOSKELETAL: No cervical, thoracic, lumbar or midline bony tenderness. Normal inspection. NEURO: Alert, awake and oriented x3. Cranial nerves: II through XII grossly intact. Speech and language: Normal with no dysarthria or dysphasia. Motor system: Tone and bulk: Normal: Strength: 5 out of 5 in all 4 extremities; pronator drift noted. Deep tendon reflexes: 2+ bilaterally symmetrical. Plantar reflex: Downgoing bilaterally. Sensory system: Intact to all modalities of sensation bilaterally. Coordination: Intact to drndqo-ejbl-bqyrew and esux-arnw-rroe test bilaterally. He has signs of Parkinson's disease with subtle rest tremors, cogwheeling, bradykinesia and masked facial expression with postural instability. Gait: Could not be tested as he is very weak and ataxic, no signs of meningeal irritation noted. PSYCHIATRIC: Normal mood and affect. Objective Labs 08/16/24 05:43 08/16/24 05:43 Labs: Laboratory Results - last 24 hr 08/15/24 05:11 WBC 8.0 RBC 4.25 L Hgb 13.2 L Hct 37.6 L MCV 89 MCH 31.1 MCHC 35.1 RDW Std Deviation 41.0 Plt Count 247 Neut % (Auto) 72 Lymph % (Auto) 12 [place] % (Auto) 10 Eos % (Auto) 5 Baso % (Auto) 0 Neut # (Auto) 5.8 Lymph # (Auto) 1.0 [place] # (Auto) 0.8 Eos # (Auto) 0.4 Baso # (Auto) 0.0 Immature Gran # (Auto) 0.02 H Absolute Nucleated RBC 0.00 Immature Gran % 0 Nucleated RBC % 0 Sodium 137 Potassium 3.8 Chloride 102 Carbon Dioxide 27.3 Anion Gap 8 BUN 16 Creatinine 1.0 Estim Creat Clear Calc Not Performed. eGFR > 60 BUN/Creatinine Ratio 16 Glucose 88 Calculated Osmolality 274 L Calcium 9.2 Corrected Calcium 9.2 Phosphorus 4.1 Magnesium 2.0 Total Bilirubin 0.9 AST 26 ALT 35 Alkaline Phosphatase 81 Total Protein 7.0 Albumin 4.3 Globulin 2.7 Albumin/Globulin Ratio 1.6 Assessment & Plan Assessment and plan (1) Parkinsons disease: Status: Acute Additional Assessment & Plan Additional Plan: Reassurance given to the patient work-up is negative for acute ischemic stroke, his presenting symptoms are secondary to Parkinson's disease with freezing phenomena. Continue with the Sinemet and Nourianz with close monitoring for visual hallucination. Motivated to participate with physical therapy sessions
[2024-08-16] VITALS: BP 119/68; PULSE 60; PULSE 61; RESP 17; TEMP 36.1; O2SAT 96
[2024-08-16 03:38] VITALS: BMI 32.6
[2024-08-16 04:00] VITALS: BP 118/73; PULSE 64; PULSE 76; RESP 21; TEMP 35.9; O2SAT 95
[2024-08-16] MEDS: CARBIDOPA/LEVODOPA 25/100 MG TABLET 2 TAB PO ×2 (05:38→12:02)
[2024-08-16 05:53] LABS: Basophils % (Auto) 0 % (0-2.5); Eosinophils # (Auto) 0.5 Thou/mm3 (0.0-0.5); Eosinophils % (Auto) 7 % (0-10); Hematocrit 36.5 % (41.0-53.0); Hemoglobin 12.7 g/dL (13.5-16.0); Immature Granulocytes % (Auto) 0 % (0-0); Immature Granulocytes Auto 0.02 Thou/mm3 (0.00-0.00); Lymphocytes % (Auto) 14 % (10-50); Mean Corpuscular HGB Conc 34.8 g/dl (31.0-37.0); Mean Corpuscular Hemoglobin 30.8 pg (25.0-35.0); Mean Corpuscular Volume 89 fL (80-100); Monocytes # (Auto) 0.6 Thou/mm3 (0.0-0.8); Monocytes % (Auto) 9 % (0-12); Neutrophils % (Auto) 70 % (37-80); Nucleated Red Blood Cell % 0 /100 WBC (0); Platelet Count 236 Thou/mm3 (140-440); RDW Standard Deviation 41.2 fL (35.1-43.9); Red Blood Count 4.12 Miln/mm3 (4.50-5.90); White Blood Count 7.1 Thou/mm3 (3.8-10.6)
[2024-08-16 06:39] LABS: Alanine Aminotransferase < 7 U/L (10-49); Albumin, Serum 4.2 gm/dL (3.4-4.8); Albumin/Globulin Ratio 1.6 (1.2-2.2); Alkaline Phosphatase 77 U/L (46-116); Anion Gap 8 (7-16); Aspartate Amino Transferase 53 U/L (0-34); BUN/Creatinine Ratio 18 Ratio (12-20); Bilirubin,Total 0.6 mg/dL (0.3-1.2); Blood Urea Nitrogen 18 mg/dL (9-23); Calcium 9.1 mg/dL (8.3-10.6); Calcium (Corrected) 9.1 mg/dL (8.5-10.1); Carbon Dioxide 26.3 mMol/L (20.0-31.0); Chloride 102 mMol/L (98-107); Globulin 2.7 gm/dL (2.3-3.5); Glucose 99 mg/dL (74-106); Magnesium 2.1 mg/dL (1.6-2.6); Osmolality,Calculated 273 (275-295); Phosphorous 3.7 mg/dL (2.4-5.1); Potassium 3.8 mMol/L (3.4-5.1); Sodium 136 mMol/L (136-145); Total Protein 6.9 gm/dL (5.7-8.2); eGFR > 60 See Note
[2024-08-16 08:00] VITALS: BP 132/80; PULSE 70; RESP 18; TEMP 36.1; O2SAT 94
[2024-08-16 09:32] VITALS: BP 132/80; PULSE 70
[2024-08-16] MEDS: amLODIPine BESYLATE 5 MG TABLET 10 MG PO (09:32)
[2024-08-16] MEDS: ENOXAPARIN SOD INJ 40 MG/0.4 ML SYRINGE SC (09:32)
[2024-08-16] MEDS: ASPIRIN EC 81 MG TABEC PO (09:33)
--- NOTE | 2024-08-16 09:49 | ESDS_ITS ---
Planned Discharge Date 08/16/24 DS: Providers Provider Date of admission: 08/11/24 16:53 Primary care physician: Physician No Primary/Family Admitting Provider: Adrian Santana MD Attending Provider on Admission: Adrian Santana MD Consults: 08/11/24 10:53 Consult to Neurology / Tele-Neurology Routine Comment: Consulting Provider: [facility] 08/11/24 17:06 Referral Physical Therapy Stat Comment: Physician Instructions: Referral Speech Therapy Stat Comment: 08/11/24 17:18 Consult to Neurology / Tele-Neurology Stat Comment: Consulting Provider: Serge Mckay 08/14/24 10:08 Referral Eufemia Stat Comment: Attending Provider on DC: Gilbert Beckford MD Discharging Provider: Gilbert Beckford MD DS: Diagnosis Problem List Completed Was Problem List Reviewed/Reconciled?: Yes Hospital Course Hospital Course Hospital course: 74 y/o M with PMHx of Parkinsons disease, presented to the ED after developing generalized weakness progressing to left sided weakness on upper and lower extremity as well as some slurred speech. NIHSS of 5 no tPA was given as patient was out of 4.5 hours window. Admitted for Stroke work up. During hospital stay patient underwent stroke protocol including, Head CT, Head/Neck CTA and MRI all which were negative for acute stroke. Echocardiogram was also done as part of work up for stroke and showed normal EF with no signs of PFO. Neurology, Dr. Mckay was also consulted and recommended to continue patient on aspirin. Patient has history of Parkinsons Disease for which his home medications were resumed. Patient also has history of Latent TB and his medications of isonizid and rifampin were resumed as prescribed. Patient had cultures done which showed urinary tract infection for which antibiotic therapy was provided. At this time patient is medically stable for discharge. Please continue antibiotics for 7 more days for UTI. Please follow-up with neurology Dr. Mckay within 1 to 2 weeks of discharge from hospital. Please follow-up with your primary care physician within 1 week of discharge from the hospital. In case of worsening symptoms please return to the emergency room. Problem List: #CVA, ruled out #Generalized Weakness, improving #Hx of Parkinson disease #Latent Tb Case discussed with my senior Dr. Benton PGY-[address] Max Beckford MD PGY-1 Status at Discharge Functional status at discharge: independent ambulation Overall status at discharge: patient is back to baseline Time Spent with Patient Time attestation: Total time spent providing and/or coordinating discharge services: Time spent: Greater than 30 minutes Exam Vital Signs Temp Pulse Resp BP Pulse Ox O2 Del Method O2 Flow Rate 96.7 F L 70 21 H 132/80 H 95 Room Air 1 08/16/24 04:00 08/16/24 09:32 08/16/24 04:00 08/16/24 09:32 08/16/24 04:00 08/16/24 04:00 08/13/24 15:41 Narrative Exam Physical exam: General: AAOx3, NAD, Polish speaking male HEENT: Moist mucous membranes, conjunctiva clear, EOMI, PERRLA, Cardiovascular: S1, S2, radial pulses +2 bilat, RRR Pulmonary: CTAB bilat no cough, no wheezing GI: No tenderness to light or deep palpitation, no guarding, rigidity, rebound tenderness or distension Extremities: No presence of trace or pitting edema in lower extremities bilaterally, dorsalis pedis pulses +2 bilaterally Neuro: AAOx3, some reduced ROM in UE and LE, however this may be due to parkinsons, able to protrude tonuge, shrug shoulders, UE and LE has no sensory deficits Discharge Plan Plan Patient Disposition: Xfer Skilled Nsg Fac (SNF) Disposition Comment: Hospitalist admit neurology consult Care Plan Goals: Please continue antibiotics for 7 more days for UTI. Please follow-up with neur ology Dr Mckay within 1 to 2 weeks of discharge from hospital. Please follow-up with your primary care physician within 1 week of discharge from the hospital. In case of worsening symptoms please return to the emergency room. Prescriptions/Referrals Prescriptions/Med Rec: New aspirin 81 mg Tablet,Delayed Release (Dr/Ec) 81 mg PO QDAY 30 Days Qty: 30 0RF atorvastatin 40 mg tablet 40 mg PO HS 30 Days Qty: 30 0RF artifi.tears(hypromellose)(PF) 1.7 % drops with applicator 1 drp ophthalmic (eye) Q8H PRN (Reason: dry eye(s)) Qty: 12 0RF sulfamethoxazole-trimethoprim 800-160 mg tablet 1 tab PO BID 7 Days Qty: 14 0RF Continued Nourianz 40 mg Tablet 40 mg PO QDAY carbidopa-levodopa 25-100 mg tablet 2 tab PO 4XD Priftin 150 mg tablet 900 mg PO QWEEK isoniazid 300 mg tablet 900 mg PO QWEEK Patient Comments: JOSEPHINE BATESS TABLETAS POR V A ORAL SEMANALMENTE Referrals: No Primary/Family,Physician [Primary Care Provider] - Patient/Caregiver Discharge Instructions Education Materials: Parkinson Disease Common Sx, Parkinson Disease Meds, Exercise for Parkinson Disease, Parkinson Disease Caregiver Print Language: Polish Stand Alone Forms: Lianet Award Info., Patient Portal Info Letter Discharge Order Discharge Orders: Discharge (Routine); Ordered 08/16/24 Ordered By: Gilbert Beckford Quality Discharge Quality Measures VTE prophylaxis MD Attestestation MD Attestation I have examined the patient, reviewed labs and imaging findings, discussed the case with the resident(s), and reviewed entered orders. I agree with the plan of care as outlined in this note. Dr. Santana
--- NOTE | 2024-08-16 10:06 | PC.SS ---
Addendum entered by LATANYA Kerns 08/16/24 11:24: Contacted [facility], regarding transport ETA. They informed no located transport company established yet. Requested [facility]. Continues pending transport ETA. Original Note: MEDICAL BILLING CLERK met with patient and family at bed side. Confirmed the d/c plan to [facility] today. Transportation scheduled via [facility] reference number #[id number]. Pending transport ETA. Bedside nurse is aware.
[2024-08-16 12:00] VITALS: BP 125/74; PULSE 75; RESP 20; TEMP 35.8; O2SAT 95
--- NOTE | 2024-08-16 14:45 | PC.SS ---
SS received call from Catarina Mishra at [facility], [facility]'s health insurance who is requesting SS fax patient's dc summary to [phone]. SS has faxed d/c summary.
== END 2024-08-16 12:54 | disposition skilled nursing facility (03) | DRG 861 ==
LOC: SERX 16:09 → SERHOLD 17:50 → S2NX 21:00
PROVIDERS: Student in an Organized Health Care Education/Training Program; Admitting Provider Student in an Organized Health Care Education/Training Program; Emergency Provider Emergency Medicine; Visit Provider Student in an Organized Health Care Education/Training Program
DX: R53.1 Weakness (principal); R47.81 Slurred speech; G20.A1 Parkinson's disease without dyskinesia, without mention of fluctuations; F02.80 Dementia in other diseases classified elsewhere, unspecified severity, without behavioral disturbance, psychotic disturbance, mood disturbance, and anxiety; N39.0 Urinary tract infection, site not specified; Z22.7 Latent tuberculosis
CPT/HCPCS: 36415; 70450; 70496; 70498; 70544; 71045; 76857; 80053; 80061; 80307; 81001; 83036; 83735; 84100; 84443; 84484; 84703; 85025; 85610; 85730; 87070; 87077; 87086; 87186; 87205; 92526; 92610; 93005; 93306; 96372; 97162; 99291; A4649; J0696; J1650; Q9967; A9270

== ENCOUNTER 2024-12-12 10:20 | Day surgery (SDC) | payer MEDICAID, SELFPAY ==
[2024-12-09 11:52] LABS: Basophils % (Auto) 0 % (0-2.5); Eosinophils # (Auto) 0.3 Thou/mm3 (0.0-0.5); Eosinophils % (Auto) 4 % (0-10); Hematocrit 37.9 % (41.0-53.0); Hemoglobin 12.8 g/dL (13.5-16.0); Immature Granulocytes % (Auto) 0 % (0-0); Immature Granulocytes Auto 0.02 Thou/mm3 (0.00-0.00); Lymphocytes # (Auto) 1.5 Thou/mm3 (1.0-4.8); Lymphocytes % (Auto) 17 % (10-50); Mean Corpuscular HGB Conc 33.8 g/dl (31.0-37.0); Mean Corpuscular Hemoglobin 30.9 pg (25.0-35.0); Mean Corpuscular Volume 92 fL (80-100); Monocytes # (Auto) 0.6 Thou/mm3 (0.0-0.8); Monocytes % (Auto) 7 % (0-12); Neutrophils # (Auto) 6.2 Thou/mm3 (1.8-7.7); Neutrophils % (Auto) 71 % (37-80); Nucleated Red Blood Cell % 0 /100 WBC (0); Platelet Count 250 Thou/mm3 (140-440); RDW Standard Deviation 41.6 fL (35.1-43.9); Red Blood Count 4.14 Miln/mm3 (4.50-5.90); White Blood Count 8.7 Thou/mm3 (3.8-10.6)
[2024-12-09 11:59] LABS: Partial Thromboplastin Time 27.3 Seconds (22.0-36.0); Prothrombin Time 10.9 Seconds (9.0-12.2)
[2024-12-09 12:19] LABS: Alanine Aminotransferase < 7 U/L (10-49); Albumin, Serum 4.3 gm/dL (3.4-4.8); Albumin/Globulin Ratio 1.6 (1.2-2.2); Alkaline Phosphatase 84 U/L (46-116); Anion Gap 8 (7-16); Aspartate Amino Transferase 14 U/L (0-34); BUN/Creatinine Ratio 14 Ratio (12-20); Bilirubin,Total 0.7 mg/dL (0.3-1.2); Blood Urea Nitrogen 14 mg/dL (9-23); Calcium 9.2 mg/dL (8.3-10.6); Calcium (Corrected) 9.2 mg/dL (8.5-10.1); Carbon Dioxide 27.3 mMol/L (20.0-31.0); Chloride 107 mMol/L (98-107); Globulin 2.7 gm/dL (2.3-3.5); Glucose 106 mg/dL (74-106); Osmolality,Calculated 283 (275-295); Potassium 4.1 mMol/L (3.4-5.1); Sodium 142 mMol/L (136-145); eGFR > 60 See Note
[2024-12-09 14:40] VITALS: BMI 33.7
[2024-12-12] VITALS (7 sets, daily range): BP systolic 134–166; BP diastolic 78–94; PULSE 63–77; RESP 13–24; TEMP 36.6–36.8; O2SAT 92–98; BMI 36.2
--- NOTE | 2024-12-12 08:00 | EKG_ITS ---
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
[2024-12-12 11:33] LABS: Alanine Aminotransferase 12 U/L (10-49); Albumin, Serum 4.1 gm/dL (3.4-4.8); Albumin/Globulin Ratio 1.5 (1.2-2.2); Alkaline Phosphatase 80 U/L (46-116); Anion Gap 9 (7-16); Aspartate Amino Transferase 15 U/L (0-34); BUN/Creatinine Ratio 9 Ratio (12-20); Bilirubin,Total 0.6 mg/dL (0.3-1.2); Blood Urea Nitrogen 8 mg/dL (9-23); Carbon Dioxide 28.4 mMol/L (20.0-31.0); Chloride 103 mMol/L (98-107); Creatinine (Component) 0.9 mg/dL (0.6-1.3); Globulin 2.8 gm/dL (2.3-3.5); Glucose 98 mg/dL (74-106); Osmolality,Calculated 277 (275-295); Potassium 3.9 mMol/L (3.4-5.1); Sodium 140 mMol/L (136-145); Total Protein 6.9 gm/dL (5.7-8.2); eGFR > 60 See Note
[2024-12-12] MEDS: RINGERS LACTATED 1000 ML 1,000 ML 20 ML IV (12:33)
== END 2024-12-12 14:11 | disposition home or self-care (01) ==
PROVIDERS: Anesthesiology; PCP Nurse Practitioner Family; Referring Provider Surgery; Visit Provider Surgery
PROC: 0DJD8ZZ Inspection of Lower Intestinal Tract, Via Natural or Artificial Opening Endoscopic (ICD-10-PCS; CPT 45378; principal; 2024-12-12 13:00)
DX: Z12.11 Encounter for screening for malignant neoplasm of colon (principal); D12.5 Benign neoplasm of sigmoid colon; K57.30 Diverticulosis of large intestine without perforation or abscess without bleeding; Z01.810 Encounter for preprocedural cardiovascular examination; Z86.73 Personal history of transient ischemic attack (TIA), and cerebral infarction without residual deficits; G20.A1 Parkinson's disease without dyskinesia, without mention of fluctuations; Z99.3 Dependence on wheelchair; Z79.82 Long term (current) use of aspirin; Z79.899 Other long term (current) drug therapy
CPT/HCPCS: 45380; 36415; 80053; 85025; 85610; 85730; 93005; A4649; J7120

== ENCOUNTER 2025-04-26 16:27 | Emergency (ER) | payer MEDICAID, SELFPAY ==
[2025-04-26 16:37] VITALS: BP 145/81; PULSE 82; RESP 16; TEMP 37.6; O2SAT 97
--- NOTE | 2025-04-26 16:47 | XR_ITS ---
Examination: PA lateral chest 2 views Technique: Upright PA lateral chest 2 views Date and time: April 26, 2025, 1700 hrs., Comparison March 11, 2024. Indication: Chest pain., Beginning 3 days ago Findings: Suspicious for early pneumonia right base obscuring detail right hemidiaphragm. Normal heart size. No pulmonary edema Moderate thoracic spondylosis. Impression: Suspicious for early pneumonia right base, clinical correlation advised
--- NOTE | 2025-04-26 16:47 | XR_ITS ---
Examination: CT brain head without contrast. 2-D sagittal coronal reconstructions Date and time of exam:April 26, 2025 1734 hrs., Comparison August 11, 2024 Indications: Onset weakness with headache today, CT stroke alert August 11, 2024 left-sided facial droop history CTDI: vol (mGy):56 DLP: (mGycm):1156 Technique: Multiple CT axial sections of the brain have been obtained, 5 mm slice thickness. Contrast has not been administered. 2-D sagittal, coronal reconstructions have been obtained Low dose protocols were performed. One or more of the following dose reduction techniques were used; automated exposure control, adjustment of the mA and/or KV according to patient size, use of iterative reconstruction technique. Findings: No significant ventricular enlargement. Intra-axial or extra-axial hemorrhage density is not seen. No mass effect or midline shift Basal cisterns are not remarkable. Fourth ventricle is midline. Cranial vault intact. Impression: Negative for acute hemorrhage, mass effect or midline shift If symptoms persist, consider repeat brain MRI follow-up stroke protocol
--- NOTE | 2025-04-26 16:47 | EKG_ITS ---
[facility] Test Date: 2025-04-26 Pat Name: AMRCOS CHINCHILLA Department: Room: - Gender: Male Manager Process: : 1950 Requested By: Azeem Larios (MANAGER RISK) Order Number: [id number] Reading MD: Azeem Larios (MANAGER RISK) Measurements Intervals [place] Rate: 82 P: 44 ND: 159 QRS: -20 QRSD: 73 T: 41 QT: 368 QTc: 432 Interpretive Statements SINUS RHYTHM LOW QRS VOLTAGE IN PRECORDIAL LEADS [QRS DEFLECTION < 1.0 mV IN CHEST LEADS] Compared to ECG 12/12/2024 10:44:25 Low QRS voltage now present /store/S0/[id number].pdf
--- NOTE | 2025-04-26 16:53 | PD.EDRME ---
Rapid Medical Screening Exam RME Arrival date/time: 04/26/25 16:27 75-year-old male presents to the emergency department for complaints of generalized fatigue and weakness ongoing for the last couple of days per the he has been more forgetful Chief Complaint: Weakness Time Seen by Provider: 04/26/25 16:43 Vital signs: Vital Signs Temperature 99.7 F 04/26/25 16:37 Pulse Rate 82 04/26/25 16:37 Respiratory Rate 16 04/26/25 16:37 Blood Pressure 145/81 H 04/26/25 16:37 Pulse Oximetry (%) 97 04/26/25 16:37 Oxygen Delivery Method Room Air 04/26/25 16:37
[2025-04-26 17:29] LABS: Collection Type, Urine Clean Catch
[2025-04-26 17:38] LABS: Bacteria,Urine Rare; Bilirubin,Urine Negative (Negative); Blood,Urine Trace (Negative); Clarity,Urine Clear (Clear/Hazy); Color,Urine Yellow (Lt Yel-Yel); Glucose, Urine Negative (Negative); Ketones,Urine Negative (Negative); Leukocyte Esterase,Urine Negative (Negative); Nitrite,Urine Negative (Negative); PH,Urine 6.0 (5.0-7.0); Protein,Urine Negative (Neg - Trace); RBC,Urine 2 /hpf (0-3); Specific Gravity,Urine 1.031 (1.001-1.035); Squamous Epithelial Cell,Urine < 1 /hpf (0-5); Urobilinogen,Urine Negative mg/dL (0.0-1.0); WBC,Urine 2 /hpf (0-5)
[2025-04-26 18:00] LABS: Lactate (Lactic Acid) 2.1 mMol/L (0.4-2.0)
[2025-04-26 18:01] LABS: Basophils # (Auto) 0.0 Thou/mm3 (0.0-0.2); Basophils % (Auto) 1 % (0-2.5); Eosinophils # (Auto) 0.1 Thou/mm3 (0.0-0.5); Eosinophils % (Auto) 2 % (0-10); Hematocrit 36.7 % (41.0-53.0); Hemoglobin 12.3 g/dL (13.5-16.0); Immature Granulocytes Auto 0.03 Thou/mm3 (0.00-0.00); Lymphocytes # (Auto) 1.2 Thou/mm3 (1.0-4.8); Lymphocytes % (Auto) 18 % (10-50); Mean Corpuscular HGB Conc 33.5 g/dl (31.0-37.0); Mean Corpuscular Hemoglobin 30.3 pg (25.0-35.0); Mean Corpuscular Volume 90 fL (80-100); Monocytes # (Auto) 0.6 Thou/mm3 (0.0-0.8); Monocytes % (Auto) 8 % (0-12); Neutrophils # (Auto) 4.6 Thou/mm3 (1.8-7.7); Neutrophils % (Auto) 71 % (37-80); Nucleated Red Blood Cell # 0.00 Thou/mm3 (0.00-0.00); Nucleated Red Blood Cell % 0 /100 WBC (0); Platelet Count 223 Thou/mm3 (140-440); RDW Standard Deviation 42.9 fL (35.1-43.9); Red Blood Count 4.06 Miln/mm3 (4.50-5.90); White Blood Count 6.5 Thou/mm3 (3.8-10.6)
[2025-04-26 18:30] LABS: Alanine Aminotransferase < 7 U/L (10-49); Albumin, Serum 4.3 gm/dL (3.4-4.8); Albumin/Globulin Ratio 1.7 (1.2-2.2); Alkaline Phosphatase 83 U/L (46-116); Anion Gap 11 (7-16); Aspartate Amino Transferase 14 U/L (0-34); BUN/Creatinine Ratio 20 Ratio (12-20); Bilirubin,Total 0.3 mg/dL (0.3-1.2); Blood Urea Nitrogen 18 mg/dL (9-23); Calcium 9.7 mg/dL (8.3-10.6); Calcium (Corrected) 9.7 mg/dL (8.5-10.1); Carbon Dioxide 26.5 mMol/L (20.0-31.0); Chloride 102 mMol/L (98-107); Creatinine (Component) 0.9 mg/dL (0.6-1.3); Globulin 2.6 gm/dL (2.3-3.5); Glucose 115 mg/dL (74-106); Osmolality,Calculated 280 (275-295); Potassium 4.2 mMol/L (3.4-5.1); Procalcitonin 0.04 ng/ml (0.0-0.49); Sodium 139 mMol/L (136-145); Total Protein 6.9 gm/dL (5.7-8.2); Troponin I < 0.002 ng/mL (0.0-0.045); eGFR > 60 See Note
--- NOTE | 2025-04-26 20:08 | PD.EDWEAK ---
ED Weakness RME/HPI General Chief complaint: Weakness Stated complaint: FEELS REALLY BAD WEAK Time Seen by Provider: 04/26/25 16:43 Arrival date/time: 04/26/25 16:27 RME / HPI RME / HPI Narrative: 04/26/25 16:27 75-year-old male presents to the emergency department for complaints of generalized fatigue and weakness ongoing for the last couple of days per the he has been more forgetful ------- See MDM for Dr. Gordillo's HPI documentation. Related Data Home Medications ?Medication ?Instructions ?Recorded ?Confirmed carbidopa 25 mg-levodopa 100 mg 2 tab PO 4XD 08/11/24 12/12/24 tablet aspirin 81 mg tablet,delayed 81 mg PO QDAY 12/12/24 12/12/24 release atorvastatin 40 mg tablet 40 mg PO DAILY 12/12/24 12/12/24 pimavanserin 34 mg capsule 34 mg PO QDAY 12/12/24 12/12/24 (Nuplazid) tamsulosin 0.4 mg capsule 0.4 mg PO DAILY 12/12/24 12/12/24 trazodone 50 mg tablet 50 mg PO DAILY 12/12/24 12/12/24 Previous Rx's ?Medication ?Instructions ?Recorded albuterol sulfate 90 mcg/actuation 2 puff inhalation Q6H PRN 04/26/25 aerosol inhaler shortness of breath or wheezing #8.5 grams azithromycin 500 mg tablet 500 mg PO QDAY 3 days #3 tabs 04/26/25 (Zithromax TRI-LADONNA) cefdinir 300 mg capsule 300 mg PO BID #14 caps 04/26/25 prednisone 50 mg tablet 50 mg PO QDAY #3 tabs 04/26/25 Allergies Allergy/AdvReac Type Severity Reaction Status Date / Time No Known Allergies Allergy Verified 04/26/25 16:31 Review of Systems Review of Systems Systems Reviewed: All systems reviewed, normal except as documented Past Medical History Past Medical History NEUROLOGIC: Positive Neurological Disorders, Transient Ischemic Attacks (TIA), Dementia and Parkinson's Disease; Negative Cerebrovascular Accident, Seizures or Spinal Cord Injury CARDIAC: Positive Cardiac Disorders and Hypercholesterolemia; Negative Myocardial Infarction, Angina or Congestive Heart Failure RESPIRATORY: Negative Chronic Obstructive Pulmonary Disease (COPD) or Emphysema GASTROINTESTINAL: Negative Gastrointestinal Disorders or Liver Cancer GENITOURINARY: Negative Genitourinary Disorders or Renal Disease MUSCULOSKELETAL: Negative Musculoskeletal Disorders or Bone Cancer ENDOCRINE: Negative Endocrine Disorders, Diabetes Mellitus Type 1 or Diabetes Mellitus Type 2 HEMATOLOGIC: Negative Blood Disorders OTHER HISTORY: Negative Hospitalization, Autoimmune Disease, Down Syndrome, Developmental Delay, Blood Transfusions, Blood Transfusion Reaction, Anesthesia Reactions, MRSA, VRSA, Vancomycin-Resistant Enterococci, Clostridium Difficile or Cancer Social History SMOKING STATUS: Never smoker SUBSTANCE USE: does not use ED Exam Narrative Physical exam: See [facility] for Dr. Gordillo's physical exam documentation. Course Course Course Narrative: CXR is ordered for determining the etiology of weakness. Quality Measures none Orders Category Date Time Status Bedside COVID-19 Antigen Test NOW Care 04/26/25 16:47 Completed Bedside Influenza A&B Antigen Test NOW Care 04/26/25 16:47 Completed EKG (ED ONLY) *Do not use* NOW Care 04/26/25 16:[address] head/brain wo con Stat Exams 04/26/25 16:47 Completed EKG (ED Only) Stat Exams 04/26/25 16:47 Draft XR chest 2V Stat Exams 04/26/25 16:47 Completed Blood Culture (Lab) Stat Lab 04/26/25 17:28 Received CBC Stat Lab 04/26/25 17:28 Completed Comprehensive Metabolic Panel Stat Lab 04/26/25 17:28 Completed Lactate (Lactic Acid) Stat Lab 04/26/25 17:28 Completed Procalcitonin Stat Lab 04/26/25 17:28 Completed Troponin I Stat Lab 04/26/25 17:28 Completed Urinalysis Stat Lab 04/26/25 17:15 Completed Urine Culture Stat Lab 04/26/25 17:15 Received Azithromycin Po [Zithromax PO] Med 04/26/25 20:10 Discontinued 500 mg PO X1 ONE cefTRIAXone [Rocephin] 1,000 mg Med 04/26/25 20:10 Discontinued Lidocaine 1% 20 ml [Xylocaine 1% 20 ML] 2.1 ml IM X1 predniSONE Med 04/26/25 20:10 Discontinued 40 mg PO X1 ONE Vital Signs Vital signs: Vital Signs Temperature 99.7 F 04/26/25 16:37 Pulse Rate 82 04/26/25 16:37 Respiratory Rate 16 04/26/25 16:37 Blood Pressure 145/81 H 04/26/25 16:37 Pulse Oximetry (%) 97 04/26/25 16:37 Oxygen Delivery Method Room Air 04/26/25 16:37 Weakness MDM Narrative MDM Narrative:: This section includes all my notes and documentations, including HPI, PE, and ED course. Avila Gordillo MD HPI: 75yo male with about a week history of worsening cough, productive cough, purulent sputum, dyspnea, and malaise and fatigue. No other complaints. ROS: All negative except as documented in HPI. Physical Exam: General: Alert and oriented. Hacking cough noted. Eyes: Conjunctivae and lids clear. ENT: No nasal congestion. Pharynx normal. TM normal bilaterally. Neck: Supple. Heart: RRR. Lungs: No respiratory distress. Good air movement with bibasilar rales. Abdomen: Soft and nontender. Skin: Warm and dry. Neuro: Alert and oriented X 3. I reviewed all diagnostic test results. My interpretation of the EKG is sinus rhythm with nonspecific ST-T changes. My interpretation of the chest x-ray is infiltrates. My review of the CT head report is NAD. Blood tests and urine tests are unremarkable. At this point, diagnoses include: Pneumonia Treatment here included Rocephin, Azithromycin, Prednisone. Significant movement noted. Recommend outpatient management. Based on my best medical judgment, made decision no further evaluation or treatment indicated at this time. Patient understands and agrees to the discharge instructions customized and printed, see below. Discharge instructions from Dr. Gordillo: --After evaluation, you have pneumonia. --No physical exertion for 3 days to help rest the lungs. Then increase physical activity little by little every single day. Prolonged inactivity is terrible for your body. ?No smoking or exposure to smoking or pets or dust or humidity. --Zithromax and cefdinir to kill the germs causing the pneumonia. --Prednisone to help decrease the swelling in the airways. --Albuterol 2 puffs every 4-6 hours as needed for cough or shortness of breath. --See a private doctor next week if not completely better. --Seek immediate medical care with worsening or with any concerns. Avila Gordillo MD Patient data External records reviewed:: [facility] previous records (Per chart review, patient was admitted here on 08/11/24 for left hemiparesis.) Clinical information provided by:: patient and spouse Social determinants that could affect healthcare access:: none Patient has the following chronic illnesses:: Parkinson's How is presenting disease/condition affected by chronic disease/condition?: exacerbated by Evaluation data The following diagnostics were reviewed and interpreted by me:: lab results, radiology exam(s) and EKG tracing(s) (My interpretation of the EKG is: Sinus rhythm (82 bpm) with nonspecific ST-T changes. Avila Gordillo MD) Lab and/or radiology exams considered but not ordered:: none Interpretation Summary: I reviewed all diagnostic test results. My interpretation of the EKG is sinus rhythm with nonspecific ST-T changes. My interpretation of the chest x-ray is infiltrates. My review of the CT report is NAD. Blood tests and urine tests are unremarkable. Medications / Prescriptions Medications or Prescriptions considered but not ordered:: none Medication administrations:: Medication Administration History Discontinued Medications Azithromycin (Azithromycin 250 Mg Tablet) 500 mg PO X1 ONE Stop: 04/26/25 20:11 Last Admin: 04/26/25 20:28 Dose: 500 mg Documented By: Ceftriaxone Sodium 1,000 mg/ (Lidocaine HCl 2.1 ml) 0 mg IM X1 ONE Stop: 04/26/25 20:11 Last Admin: 04/26/25 20:30 Dose: 1,000 mg Documented By: Prednisone (Prednisone 20 Mg Tablet) 40 mg PO X1 ONE Stop: 04/26/25 20:11 Last Admin: 04/26/25 20:27 Dose: 40 mg Documented By: Rocephin, Azithromycin, Prednisone Consultations Consultation(s) initiated? (list below): No Diagnosis Weakness Differential Diagnosis: acute myocardial infarction, anemia, hypoglycemia, hypothyroidism, rhabdomyolysis, sepsis, dehydration and other (pneumonia, COVID, Influenza, viral syndrome) Most likely diagnosis given after review of the tests above:: Pneumonia Admission Indicated Admission indicated?: not indicated Explain why admission is indicated or not indicated:: With significant proven and no condition needing emergent intervention, there was no indication for admission. Admission Request Was there a request for admission?: No Disposition Plan Disposition Plan: Discharge Discharge Attestation Discharge Attestation: The patient and all family members were given an opportunity to ask questions and understood the discharge instructions. Discharge instructions specifically effects, indications for sooner follow up or return to the emergency department, and the expected course of current diagnosis. Patient condition: Stable Discharge Plan Plan Patient Disposition: HOME (Self Care) Prescriptions/Referrals Prescriptions/Med Rec: New prednisone 50 mg tablet 50 mg PO QDAY Qty: 3 0RF albuterol sulfate 90 mcg/actuation HFA aerosol inhaler 2 puff inhalation Q6H PRN (Reason: shortness of breath or wheezing) Qty: 8.5 0RF cefdinir 300 mg capsule 300 mg PO BID Qty: 14 0RF azithromycin [Zithromax TRI-LADONNA] 500 mg tablet 500 mg PO QDAY 3 Days Qty: 3 0RF No Action carbidopa-levodopa 25-100 mg tablet 2 tab PO 4XD atorvastatin 40 mg tablet 40 mg PO DAILY Patient Comments: TOME 1 TABLETA POR V A ORAL TODOS LOS D AL ACOSTARSE trazodone 50 mg tablet 50 mg PO DAILY Patient Comments: TOME 1 TABLETA POR V A ORAL TODOS LOS D AL ACOSTARSE aspirin 81 mg tablet,delayed release (DR/EC) 81 mg PO QDAY Patient Comments: TOME 1 TABLETA POR V A ORAL TODOS LOS D tamsulosin 0.4 mg capsule 0.4 mg PO DAILY Patient Comments: TOME 1 C PSULA POR V A ORAL TODOS LOS D Nuplazid 34 mg capsule 34 mg PO QDAY Referrals: No Primary/Family,Physician [Primary Care Provider] - In 1 week Problem List Clinical Impression: Pneumonia Patient/Caregiver Discharge Instructions Discharge Activity: activity as tolerated Education Materials: ED Pneumonia (Adult) Additional Instructions: Discharge instructions from Dr. Gordillo: --After evaluation, you have pneumonia. --No physical exertion for 3 days to help rest the lungs. Then increase physical activity little by little every single day. Prolonged inactivity is terrible for your body. ?No smoking or exposure to smoking or pets or dust or humidity. --Zithromax and cefdinir to kill the germs causing the pneumonia. --Prednisone to help decrease the swelling in the airways. --Albuterol 2 puffs every 4-6 hours as needed for cough or shortness of breath. --See a private doctor next week if not completely better. --Seek immediate medical care with worsening or with any concerns. Instrucciones de bhumi del Dr. Gordillo: --Despu?s de la evaluaci?n, tiene neumon?a. --No realice esfuerzo f?sico pastora 3 d?as para ayudar a que los pulmones descansen. Luego, aumente la actividad f?negrito gradualmente todos los d?as. La inactividad prolongada es perjudicial para el cuerpo. --No fume ni se exponga al humo, a las mascotas, al polvo ni a la humedad. --Zithromax y cefdinir para eliminar los g?rmenes que causan la neumon?a. --Prednisona para ayudar a disminuir la inflamaci?n de las v?as respiratorias. --Albuterol: 2 inhalaciones cada 4-6 horas seg?n sea necesario para la tos o la dificultad para respirar. --Consulte con un m?dico particular la pr?xima semana si no mejora por completo. --Busque atenci?n m?dica inmediata si la condici?n empeora o tiene alguna inquietud. Print Language: Azeri Stand Alone Forms: [employer]ian[employer] Award Info., Patient Portal Info Letter
[2025-04-26] MEDS: AZITHROMYCIN 250 MG TABLET 500 MG PO (20:28)
[2025-04-26] MEDS: cefTRIAXone 1,000 MG, LIDOCAINE 1% 20 ML 2.1 ML IM (20:30)
[2025-04-26 20:56] LABS: Reflex Lactate? Y
== END 2025-04-26 20:45 | disposition home or self-care (01) ==
PROVIDERS: Nurse Practitioner Primary Care; Emergency Provider Emergency Medicine
DX: J18.9 Pneumonia, unspecified organism (principal); G20.A1 Parkinson's disease without dyskinesia, without mention of fluctuations
CPT/HCPCS: 36415; 70450; 71046; 80053; 81001; 83605; 84145; 84484; 85025; 87040; 87077; 87086; 87186; 87400; 87811; 93005; 96372; 99284; J0696; J3490; J7512; A9270

== ENCOUNTER 2025-05-18 06:07 | Emergency (ER) | payer MEDICAID, SELFPAY ==
[2025-05-18 06:11] VITALS: BP 126/72; PULSE 77; RESP 16; TEMP 36.4; O2SAT 96
[2025-05-18 06:20] VITALS: PULSE 76
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
[2025-05-18 07:10] VITALS: BP 141/81; PULSE 79; RESP 18; TEMP 36.5; O2SAT 95
[2025-05-18 08:14] VITALS: BP 166/87; PULSE 70; RESP 18; O2SAT 97
== END 2025-05-18 08:26 | disposition home or self-care (01) ==
LOC: SERX 08:25
PROVIDERS: Emergency Provider Emergency Medicine; PCP Nurse Practitioner Family
DX: M54.2 Cervicalgia (principal); R51.9 Headache, unspecified; V89.9XXA Person injured in unspecified vehicle accident, initial encounter
CPT/HCPCS: 70450; 72125; 99283